=== PATIENT | male | born 1940 | race Native Hawaiian/Other Pacific Islander ===

== ENCOUNTER 2016-11-29 01:11 | Emergency (ER) | payer MEDICARE ==
[2016-11-29 01:43] VITALS: RESP 18
[2016-11-29] MEDS ORDERED: ORPHENADRINE 30 MG/ML 2 ML VIAL IM STA (02:02)
[2016-11-29] MEDS ORDERED: HYDROmorphone 2 MG/ML 1 ML SYRINGE IM STA (02:02)
--- NOTE | 2016-11-29 02:28 | ED ---
Recheck HPI - General Chief Complaint: Recheck/Abnormal Lab/Rx Stated Complaint: neck pain Time Seen by Provider: 11/29/16 01:52 Source: patient, RN notes reviewed, old records reviewed Mode of arrival: ambulatory Limitations: no limitations - History of Present Illness Initial Comments: 76-year-old male presents the ED chief complaint of right-sided jaw pain. Patient reports that he's had this pain off and on for the past year. He reports it started last November after he had his teeth cleaned. He states that he was told that he has a trigeminal nerve inflammation. States that he has been prescribed gabapentin and Perkins however it is not helping the pain. Patient states that he was doing fine for the past year however he had his teeth cleaned one week ago. It seemed to reactivate the pain again. Patient denies any difficulty opening or closing his mouth. He states that he is currently undergoing chemotherapy for prostate cancer. Denies any chest pain, shortness breath, nausea, vomiting, fevers, chills, ear pain. He states it wrapped the from the TMJ or down the mandible. Patient reports it feels like a sharp shooting pain. - Related Data Home Medications Medication Instructions Recorded Confirmed Hydrocodone/Acetaminophen [[place] 1 tab PO Q4H PRN 11/29/16 11/29/16 10-325] Previous Rx's Medication Instructions Recorded Cyclobenzaprine [Flexeril] 10 mg PO TID #15 tab 11/29/16 clonazePAM [KlonoPIN] 0.5 mg PO BID #8 tablet 11/29/16 Allergies Allergy/AdvReac Type Severity Reaction Status Date / Time No Known Allergies Allergy Verified 11/29/16 12:53 Review of Systems ROS Statement: Those systems with pertinent positive or pertinent negative responses have been documented in the HPI. ROS Other: All systems not noted in ROS Statement are negative. Past Medical History Additional Past Medical History / Comment(s): Prostate cancer History of Any Multi-Drug Resistant Organisms: None Reported Past Psychological History: No Psychological Hx Reported Smoking Status: Former smoker Past Alcohol Use History: None Reported Past Drug Use History: None Reported General Exam - General Exam Comments Initial Comments: 76-year-old male. No acute distress. Limitations: no limitations General appearance: alert, in no apparent distress Head exam: Present: atraumatic, normocephalic, normal inspection Eye exam: Present: normal appearance, PERRL, EOMI. Absent: scleral icterus, conjunctival injection, periorbital swelling ENT exam: Present: normal exam, mucous membranes moist Neck exam: Present: normal inspection. Absent: tenderness, meningismus, lymphadenopathy Respiratory exam: Present: normal lung sounds bilaterally. Absent: respiratory distress, wheezes, rales, rhonchi, stridor Cardiovascular Exam: Present: regular rate, normal rhythm, normal heart sounds. Absent: systolic murmur, diastolic murmur, rubs, gallop, clicks GI/Abdominal exam: Present: soft, normal bowel sounds. Absent: distended, tenderness, guarding, rebound, rigid Extremities exam: Present: normal inspection, full ROM, normal capillary refill. Absent: tenderness, pedal edema, joint swelling, calf tenderness Back exam: Present: normal inspection Neurological exam: Present: alert, oriented X3, CN II-XII intact Psychiatric exam: Present: normal affect, normal mood Skin exam: Present: warm, dry, intact, normal color. Absent: rash Course Vital Signs 11/29/16 11/29/16 01:39 03:36 Temperature 98.8 F 97.2 F L Pulse Rate 89 65 Respiratory 18 18 Rate Blood Pressure 179/84 143/78 O2 Sat by Pulse 95 100 Oximetry Medical Decision Making - Medical Decision Making 76 male a chief complaint of right jaw pain. He states even hold he has an inflamed trigeminal nerve. Patient reports that this pain is chronic, but has become much worse over the past week after having teeth cleaned. He states that it is only on the right side and goes from his TMJ to his mandible. He is unable to sleep due to the pain he currently takes Perkins tends and gabapentin which is not helping with the pain. Patient has no evidence of abscess, and has full range of motion of jaw. No difficulty swallowing. Patient was given pain injection. Discussed possibility of steroid, however patient is currently undergoing chemotherapy. Dischssed that patient should use at home pain medication, and I can prescribe muscle relaxer for helping to sleep. Patient agrees. He was reevaluated and feels much better. Case discussed with Dr. Damon. Disposition Clinical Impression: TMJ (temporomandibular joint disorder) Disposition: HOME SELF-CARE Condition: Good Instructions: Temporomandibular Disorder (ED) Additional Instructions: Patient advised to follow-up with primary care provider. Take medications as prescribed. Return to the emergency department if any alarming signs or symptoms occur. Prescriptions: clonazePAM [KlonoPIN] 0.5 mg PO BID #8 tablet Cyclobenzaprine [Flexeril] 10 mg PO TID #15 tab Referrals: Gabby Garcia DO [Primary Care Provider] - 1-2 days Time of Disposition: 03:08
[2016-11-29 03:38] VITALS: BP 143/78; PULSE 65; TEMP 97.2
== END 2016-11-29 03:38 | disposition home or self-care (01) ==
LOC: EC 01:11
DX: M26.601 Right temporomandibular joint disorder, unspecified (principal); Z85.46 Personal history of malignant neoplasm of prostate; Z87.891 Personal history of nicotine dependence
CPT/HCPCS: 99283; 96372 ×2; J1170; J2360

== ENCOUNTER 2016-11-29 12:47 | Emergency (ER) | payer MEDICARE ==
[2016-11-29 12:53] VITALS: RESP 18; TEMP 97
[2016-11-29] MEDS ORDERED: HYDROmorphone 1 MG/ML 1 ML SYRINGE IM STA (13:48)
[2016-11-29] MEDS ORDERED: KETOROLAC 60 MG/2 ML VIAL IM STA (13:49)
--- NOTE | 2016-11-29 13:58 | ED ---
General Adult HPI - General Chief complaint: Neck Pain/Injury Stated complaint: nerve pain-revisit Time Seen by Provider: 11/29/16 13:30 Source: patient, family, RN notes reviewed Mode of arrival: wheelchair Limitations: no limitations - History of Present Illness Initial comments: Patient is a pleasant 76-year-old male returning to the emergency Department with right-sided neck/jaw pain. Symptoms have been present for 1 year. Patient has seen multiple specialists including dentist several times and his regular doctor and his oncologist and an ENT. Patient has also seen a neurologist. Patient was told it was nerve pain. Patient has been taking gabapentin however has not worked much recently. Symptoms worsened since getting his teeth cleaned again week or so ago. Symptoms are waxing and waning. Discomfort is sharp and radiating to her discomfort starts below the angle of the right mandible and extends anterior. Patient states usually drinking or eating can make symptoms worse. Patient has had MRI and x-rays done. Patient states ice to the area does help. No teeth swelling. - Related Data Home Medications Medication Instructions Recorded Confirmed Gabapentin [Neurontin] 400 mg PO BID 11/29/16 11/29/16 Hydrocodone/Acetaminophen [[place] 1 tab PO Q4H PRN 11/29/16 11/29/16 10-325] Previous Rx's Medication Instructions Recorded Cyclobenzaprine [Flexeril] 10 mg PO TID #15 tab 11/29/16 clonazePAM [KlonoPIN] 0.5 mg PO BID #8 tablet 11/29/16 Allergies Allergy/AdvReac Type Severity Reaction Status Date / Time No Known Allergies Allergy Verified 11/29/16 13:42 Review of Systems ROS Statement: Those systems with pertinent positive or pertinent negative responses have been documented in the HPI. ROS Other: All systems not noted in ROS Statement are negative. Constitutional: Denies: fever Eyes: Denies: eye pain ENT: Denies: ear pain Respiratory: Denies: cough Cardiovascular: Denies: chest pain Endocrine: Denies: fatigue Gastrointestinal: Denies: abdominal pain Genitourinary: Denies: dysuria Musculoskeletal: Denies: back pain Skin: Denies: rash Neurological: Denies: headache Past Medical History Additional Past Medical History / Comment(s): Prostate cancer History of Any Multi-Drug Resistant Organisms: None Reported Past Psychological History: No Psychological Hx Reported Smoking Status: Former smoker Past Alcohol Use History: None Reported Past Drug Use History: None Reported General Exam Limitations: no limitations General appearance: alert, in no apparent distress Head exam: Present: atraumatic, normocephalic Eye exam: Present: normal appearance, PERRL ENT exam: Present: normal oropharynx, other (Normal oropharynx. No signs of swelling or tenderness.) Neck exam: Present: normal inspection, other (No tenderness to the jaw or anterior neck including the area of concern.). Absent: tenderness Respiratory exam: Present: normal lung sounds bilaterally Cardiovascular Exam: Present: regular rate, normal rhythm GI/Abdominal exam: Present: soft. Absent: tenderness Extremities exam: Present: normal inspection Neurological exam: Present: alert, CN II-XII intact Psychiatric exam: Present: normal affect, normal mood Skin exam: Present: normal color Course Vital Signs 11/29/16 12:50 Temperature 97 F L Pulse Rate 67 Respiratory 18 Rate Blood Pressure 164/72 O2 Sat by Pulse 98 Oximetry - Reevaluation(s) Reevaluation #1: 11/29/16 13:50 Patient offered further evaluation however refuses stating this is a chronic problem and just would like pain control and discharge. Disposition Clinical Impression: Neck pain Disposition: HOME SELF-CARE Instructions: Chronic Pain (ED) Additional Instructions: Please follow-up with your primary care physician and neurologist in the beginning of the week. Return for change or worsening of symptoms, fevers or weakness or other concerns. Please consider further evaluation with pain management for possible nerve injections. Please also follow-up with oral maxillary facial surgery. Referrals: Gabby Garcia DO [Primary Care Provider] - 1-2 days Ilia Santana DDS [STAFF PHYSICIAN] - 1-2 days Bernardo Morfin MD [STAFF PHYSICIAN] - 1-2 days Time of Disposition: 13:56
[2016-11-29 14:23] VITALS: BP 127/60; PULSE 56
== END 2016-11-29 14:23 | disposition home or self-care (01) ==
LOC: EC 12:47
DX: M54.2 Cervicalgia (principal); Z85.46 Personal history of malignant neoplasm of prostate; Z87.891 Personal history of nicotine dependence; Z79.899 Other long term (current) drug therapy
CPT/HCPCS: 99283; 96372 ×2; J1885; J1170

== ENCOUNTER 2016-11-30 07:59 | Emergency (ER) | payer MEDICARE ==
[2016-11-30] MEDS ORDERED: HYDROmorphone 1 MG/ML 1 ML SYRINGE IVP STA (08:26)
[2016-11-30] MEDS ORDERED: ONDANSETRON 4 MG/2 ML VIAL IVP STA (08:26)
[2016-11-30] MEDS ORDERED: SODIUM CHLORIDE 0.9% 1,000 ML IV ONE (08:27)
[2016-11-30] MEDS ORDERED: RX INFO: IV CONTRAST WAS GIVEN 1 EACH MISC MISCELLANE PRN (08:27)
[2016-11-30] MEDS ORDERED: SODIUM CHLORIDE 0.9% 500 ML IV ONE (08:27)
--- NOTE | 2016-11-30 08:31 | ED ---
General Adult HPI - General Chief complaint: Skin/Abscess/Foreign Body Stated complaint: Dental pain Time Seen by Provider: 11/30/16 08:09 Source: patient, RN notes reviewed Mode of arrival: ambulatory Limitations: no limitations - History of Present Illness Initial comments: This a 76-year-old male presents to emergency department for his third ER visit in 24 hours for right sided facial pain. Patient states that he believes this is an exacerbation of his ongoing issue for the last 1 year. Patient states that he was told that he had trigeminal neuralgia/TMJ issues. Patient states he has pain that radiates just below his right ear and radiates along his jawline to almost his chin. Patient states that he has seen multiple specialists including ENT, primary care physician, neurologist in which most were in [place]. Patient states that he did not have any issues in [place] but states when he came back that he started having issue approximate one week ago. Patient states that he cannot tolerate the pain is eating and drinking makes his symptoms worse today has not been eating or drinking much he states that he has a rag and water and socks on that because that finding that he can wet his mouth with. Patient states though he is able to swallow his pain pills. Patient also states that he has been stable with pain up into his last week on gabapentin 400 mg twice a day. Patient states he is scheduled see Dr. Greene this week. Patient also states that he has an oncologist and currently under chemotherapy for prostate cancer. - Related Data Home Medications Medication Instructions Recorded Confirmed Gabapentin [Neurontin] 400 mg PO BID 11/29/16 11/30/16 Hydrocodone/Acetaminophen [[place] 1 tab PO Q4H PRN 11/29/16 11/30/16 10-325] Previous Rx's Medication Instructions Recorded Cyclobenzaprine [Flexeril] 10 mg PO TID #15 tab 11/29/16 clonazePAM [KlonoPIN] 0.5 mg PO BID #8 tablet 11/29/16 carBAMazepine [carBAMazepine ER] 100 mg PO BID #14 cap 11/30/16 Allergies Allergy/AdvReac Type Severity Reaction Status Date / Time No Known Allergies Allergy Verified 11/30/16 08:29 Review of Systems ROS Statement: Those systems with pertinent positive or pertinent negative responses have been documented in the HPI. ROS Other: All systems not noted in ROS Statement are negative. Past Medical History Additional Past Medical History / Comment(s): Prostate cancer History of Any Multi-Drug Resistant Organisms: None Reported Past Psychological History: No Psychological Hx Reported Smoking Status: Former smoker Past Alcohol Use History: None Reported Past Drug Use History: None Reported General Exam Limitations: no limitations General appearance: alert, in no apparent distress Head exam: Present: atraumatic, normocephalic, normal inspection Eye exam: Present: normal appearance, PERRL, EOMI. Absent: scleral icterus, conjunctival injection, periorbital swelling ENT exam: Present: normal exam, normal oropharynx, mucous membranes moist, TM's normal bilaterally, normal external ear exam, other (No abnormal lesions, abscess swelling or erythema the mouth) Neck exam: Present: normal inspection, full ROM. Absent: tenderness (No tenderness along the area of pain), meningismus, lymphadenopathy Respiratory exam: Present: normal lung sounds bilaterally. Absent: respiratory distress, wheezes, rales, rhonchi, stridor Cardiovascular Exam: Present: regular rate, normal rhythm, normal heart sounds. Absent: systolic murmur, diastolic murmur, rubs, gallop, clicks Neurological exam: Present: alert, oriented X3, CN II-XII intact Skin exam: Present: warm, dry, intact, normal color. Absent: rash Course Vital Signs 11/30/16 11/30/16 08:01 09:11 Temperature 97.6 F Pulse Rate 74 59 L Respiratory 20 16 Rate Blood Pressure 190/80 160/68 O2 Sat by Pulse 95 90 L Oximetry Medical Decision Making - Medical Decision Making 36-year-old male presented for third visit for facial pain. This is related to his trigeminal neuralgia as she's been diagnosed in the past. Patient is currently on gabapentin but it is not helping. Patient will be started on carbamazepine now to see if this helps improve his symptoms. He has an appointment follow-up with neurologist. The case was discussed with Dr. Giron. Return parameters were discussed. Patient agrees to plan. - Lab Data Result diagrams: 11/30/16 08:49 11/30/16 08:49 Lab Results 11/30/16 11/30/16 Range/Units 08:49 08:49 WBC 7.2 (3.8-10.6) k/uL RBC 4.40 (4.30-5.90) m/uL Hgb 14.5 (13.0-17.5) gm/dL Hct 41.4 (39.0-53.0) % MCV 94.1 (80.0-100.0) fL MCH 33.0 (25.0-35.0) pg MCHC 35.1 (31.0-37.0) g/dL RDW 13.3 (11.5-15.5) % Plt Count 202 (150-450) k/uL Neutrophils % 75 % Lymphocytes % 15 % Monocytes % 6 % Eosinophils % 2 % Basophils % 0 % Neutrophils # 5.4 (1.3-7.7) k/uL Lymphocytes # 1.1 (1.0-4.8) k/uL Monocytes # 0.4 (0-1.0) k/uL Eosinophils # 0.1 (0-0.7) k/uL Basophils # 0.0 (0-0.2) k/uL Sodium 144 (137-145) mmol/L Potassium 4.1 (3.5-5.1) mmol/L Chloride 108 H (98-107) mmol/L Carbon Dioxide 24 (22-30) mmol/L Anion Gap 12 mmol/L BUN 24 H (9-20) mg/dL Creatinine 1.00 (0.66-1.25) mg/dL Est GFR (MDRD) Af Amer >60 (>60 ml/min/1.73 sqM) Est GFR (MDRD) Non-Af >60 (>60 ml/min/1.73 sqM) Glucose 122 H (74-99) mg/dL Calcium 9.5 (8.4-10.2) mg/dL Total Bilirubin 1.2 (0.2-1.3) mg/dL AST 58 (17-59) U/L ALT 66 (21-72) U/L Alkaline Phosphatase 69 (38-126) U/L C-Reactive Protein <5.0 (<10.0) mg/L Total Protein 8.1 (6.3-8.2) g/dL Albumin 4.3 (3.5-5.0) g/dL Disposition Clinical Impression: Trigeminal neuralgia of right side of face Disposition: HOME SELF-CARE Condition: Stable Instructions: Trigeminal Neuralgia (ED) Additional Instructions: Please return to the Emergency Department if symptoms worsen or any other concerns. Prescriptions: carBAMazepine [carBAMazepine ER] 100 mg PO BID #14 cap Referrals: Gabby Garcia DO [Primary Care Provider] - 1-2 days Time of Disposition: 10:32
[2016-11-30 09:02] LABS: Basophils % (A) 0 %; CH 32.3; CHCM 34.4; Eosinophils # (A) 0.1 k/uL (0-0.7); Eosinophils % (A) 2 %; HCT 41.4 % (39.0-53.0); HDW 2.68; HGB 14.5 gm/dL (13.0-17.5); Luc # (Auto) 0.19; Luc % (Auto) 3; Lymphocytes # (A) 1.1 k/uL (1.0-4.8); Lymphocytes % (A) 15 %; MCHC 35.1 g/dL (31.0-37.0); MCV 94.1 fL (80.0-100.0); Mean Platelet Volume 7.8; Monocytes # (A) 0.4 k/uL (0-1.0); Monocytes % (A) 6 %; Neutrophils # (A) 5.4 k/uL (1.3-7.7); Neutrophils % (A) 75 %; RDW 13.3 % (11.5-15.5); WBC 7.2 k/uL (3.8-10.6); WBC (Perox) 7.64
[2016-11-30 09:14] VITALS: RESP 16
[2016-11-30 09:15] LABS: ALT 66 U/L (21-72); AST 58 U/L (17-59); Alkaline Phosphatase 69 U/L (38-126); Anion Gap 12 mmol/L; Blood Urea Nitrogen 24 mg/dL (9-20); C Reactive Protein <5.0 mg/L (<10.0); Calcium 9.5 mg/dL (8.4-10.2); Carbon Dioxide 24 mmol/L (22-30); Chloride 108 mmol/L (98-107); Glucose 122 mg/dL (74-99); Non-African American GFR(MDRD) >60 (>60 ml/min/1.73 sqM); Potassium 4.1 mmol/L (3.5-5.1); Sodium 144 mmol/L (137-145); Total Bilirubin 1.2 mg/dL (0.2-1.3); Total Protein 8.1 g/dL (6.3-8.2)
--- NOTE | 2016-11-30 10:06 | CT ---
EXAMINATION TYPE: CT soft tissue neck w con DATE OF EXAM: 11/30/2016 COMPARISON: NONE HISTORY: Rt sided facial and neck pain CT DLP: 483.6 mGycm CONTRAST: Patient injected with 100 mL of Omnipaque 300. TECHNIQUE: Axial images at 3 mm thick sections. Reconstructed images in the coronal plane and sagitt al plane are reviewed. FINDINGS: Limited CT sections are obtained the lung apices. The lung apices appear clear. CT neck: The torus tubarius and fossa of Rosenmuller are normal. Electrical W[employer] Lineman spaces are normal. Para nasal sinuses and mastoid air cells are clear. Parotid glands appear normal and symmetrical. Submandibular glands, are normal. Parapharyngeal spac es are normal. No suspicious adenopathy is evident. There are scattered small lymph nodes present in cluding the submandibular regions and clavicular regions. Degenerative changes are noted within the c ervical spine. The hypopharynx appears within normal limits. Vocal cord level appear symmetrical. Thyroid as visualized is normal. Mastoid air cells are clear. No suspicious petrous ridge erosions are evident. Cerebellar pontine ang les are normal. Internal auditory canals are unremarkable. IMPRESSIONS: 1. 1. No suspicious acute changes.
[2016-11-30 10:37] LABS: Erythrocyte Sedimentation Rate 20 mm/hr (0-15)
[2016-11-30 10:42] VITALS: BP 144/73; PULSE 63; TEMP 98
== END 2016-11-30 10:42 | disposition home or self-care (01) ==
LOC: EC 07:59
DX: G50.0 Trigeminal neuralgia (principal); Z87.891 Personal history of nicotine dependence; Z79.899 Other long term (current) drug therapy; Z85.46 Personal history of malignant neoplasm of prostate
CPT/HCPCS: 36415; 80053; 85652; 85025; 86140; 70491; 99283; 96374; 96375; 96361; J2405; J1170; Q9967

== ENCOUNTER 2016-12-13 09:51 | Emergency (ER) | payer MEDICARE ==
--- NOTE | 2016-12-13 10:35 | ED ---
General Adult HPI - General Chief complaint: ENT Stated complaint: neck pain Time Seen by Provider: 12/13/16 10:17 Source: patient, family, RN notes reviewed Mode of arrival: ambulatory Limitations: no limitations - History of Present Illness Initial comments: Patient is a pleasant 76-year-old male presenting to the emergency department with right neck pain. Patient has been having symptoms for over a year. Patient is scheduled for MRI on Wednesday. Patient has seen his doctor and neurologist and dentist and others for this. Patient has had CT scans. Patient thought he had previously had an MRI however is no longer clear on this. Patient had severe pain around 8:00 this morning. Pain usually gets worse with eating and drinking. Patient has no discomfort at this time. Patient has not followed up with physicians as previously recommended an ER visit. Previous ER visits reviewed. Patient is currently undergoing radiation therapy for prostate cancer. Patient has also discussed symptoms with his oncologist. - Related Data Home Medications Medication Instructions Recorded Confirmed Gabapentin [Neurontin] 400 mg PO BID 11/29/16 11/30/16 Hydrocodone/Acetaminophen [[place] 1 tab PO Q4H PRN 11/29/16 11/30/16 10-325] Previous Rx's Medication Instructions Recorded Cyclobenzaprine [Flexeril] 10 mg PO TID #15 tab 11/29/16 clonazePAM [KlonoPIN] 0.5 mg PO BID #8 tablet 11/29/16 carBAMazepine [carBAMazepine ER] 100 mg PO BID #14 cap 11/30/16 Allergies Allergy/AdvReac Type Severity Reaction Status Date / Time No Known Allergies Allergy Verified 12/13/16 10:15 Review of Systems ROS Statement: Those systems with pertinent positive or pertinent negative responses have been documented in the HPI. ROS Other: All systems not noted in ROS Statement are negative. Constitutional: Denies: fever Eyes: Denies: eye pain ENT: Denies: ear pain, throat pain, dental pain, hearing loss, epistaxis Respiratory: Denies: cough Cardiovascular: Denies: chest pain Endocrine: Denies: fatigue Gastrointestinal: Denies: abdominal pain Genitourinary: Denies: dysuria Musculoskeletal: Denies: back pain Skin: Denies: rash Neurological: Denies: weakness Psychiatric: Reports: anxiety Past Medical History Additional Past Medical History / Comment(s): Prostate cancer, trigenminal neuralgia History of Any Multi-Drug Resistant Organisms: None Reported Past Surgical History: No Surgical Hx Reported Past Psychological History: No Psychological Hx Reported Smoking Status: Former smoker Past Alcohol Use History: None Reported Past Drug Use History: None Reported General Exam Limitations: no limitations General appearance: alert, in no apparent distress Head exam: Present: atraumatic Eye exam: Present: normal appearance, PERRL ENT exam: Present: normal exam, normal oropharynx, TM's normal bilaterally, other (No tenderness. No swelling.) Neck exam: Present: normal inspection, full ROM. Absent: tenderness, meningismus, lymphadenopathy Respiratory exam: Present: normal lung sounds bilaterally Cardiovascular Exam: Present: regular rate, normal rhythm GI/Abdominal exam: Present: soft. Absent: tenderness Neurological exam: Present: alert, oriented X3, CN II-XII intact. Absent: motor sensory deficit Psychiatric exam: Present: normal affect, normal mood Skin exam: Present: normal color Course Vital Signs 12/13/16 10:08 Temperature 97.5 F L Pulse Rate 68 Respiratory 18 Rate Blood Pressure 120/69 O2 Sat by Pulse 97 Oximetry Disposition Clinical Impression: Neck pain Disposition: HOME SELF-CARE Condition: Stable Instructions: Chronic Pain (ED) Additional Instructions: Please follow-up with MRI on Wednesday as scheduled. Please follow-up with your doctor following this. Please also follow-up with oral maxillary facial surgeon as well as pain management. Return for swelling, weakness, worsening or changing symptoms or other concerns. Referrals: Gabby Garcia DO [Primary Care Provider] - 1-2 days Bernardo Morfin MD [STAFF PHYSICIAN] - 1-2 days Ilia Santana DDS [STAFF PHYSICIAN] - 1-2 days Time of Disposition: 10:34
[2016-12-13] MEDS ORDERED: KETOROLAC 60 MG/2 ML VIAL IM STA (10:46)
[2016-12-13] MEDS ORDERED: HYDROmorphone 1 MG/ML 1 ML SYRINGE IM STA (10:47)
[2016-12-13 11:03] VITALS: BP 123/75; PULSE 69; RESP 16; TEMP 97.8
== END 2016-12-13 11:14 | disposition home or self-care (01) ==
LOC: EC 09:51
DX: M54.2 Cervicalgia (principal); C61 Malignant neoplasm of prostate; Z87.891 Personal history of nicotine dependence; Z79.899 Other long term (current) drug therapy
CPT/HCPCS: 99283; 96372 ×2; J1885; J1170

== ENCOUNTER → 2016-12-16 | Outpatient (CLI) | payer MEDICARE ==
--- NOTE | 2016-12-16 17:36 | MR ---
EXAMINATION TYPE: MR brain wo/w con DATE OF EXAM: 12/16/2016 COMPARISON: NONE HISTORY: Disorder of rt glossopharyngeal nerve CONTRAST: Performed utilizing 18 mL intravenous MultiHance gadolinium contrast. TECHNIQUE: Multiplanar, multiecho imaging on a 3.0 Arlin magnet is performed through the brain. Stud y is performed within 24 hours of arrival to the hospital. The craniovertebral junction is normal. The pituitary is normal. Diffusion-weighted imaging is performed. No abnormal hyperintensity is present to suggest an acute i ntracranial infarct or acute ischemic change. There are scattered punctate areas of hyperintensity on T2 and Inversion Recovery weighted sequences which are non-specific but can be related to microvascular ischemic changes. Ventricles and sulci are appropriate for the patient age. Skull base appears unremarkable. Jugulodigastric region appears unremarkable. No cerebellar pontine a ngle masses are evident. IMPRESSIONS: 1. Unremarkable noncontrast and postcontrast MRI brain
== END | disposition home or self-care (01) ==
LOC: RADMRIMAIN 15:33
PROVIDERS: ATTEND Family Medicine
DX: G52.1 Disorders of glossopharyngeal nerve (principal)
CPT/HCPCS: 70553; A9577

== ENCOUNTER → 2017-02-17 | Outpatient (CLI) | payer MEDICARE | END | disposition home or self-care (01) | LOC: LABWHC1 12:00 | PROVIDERS: ATTEND Radiology Radiation Oncology | DX: C61 Malignant neoplasm of prostate (principal) | CPT/HCPCS: 36415; 84153 ==

== ENCOUNTER → 2017-11-08 | Outpatient (CLI) | payer MEDICARE | END | disposition home or self-care (01) | LOC: LABWHC1 13:44 | PROVIDERS: ATTEND Radiology Radiation Oncology | DX: C61 Malignant neoplasm of prostate (principal) | CPT/HCPCS: 36415; 84153 ==

== ENCOUNTER → 2017-12-15 | Outpatient (CLI) | payer MEDICARE ==
[2017-12-15 13:15] LABS: Basophils % (A) 0 %; Eosinophils # (A) 0.2 k/uL (0-0.7); Eosinophils % (A) 3 %; HGB 13.5 gm/dL (13.0-17.5); Lymphocytes # (A) 1.3 k/uL (1.0-4.8); Lymphocytes % (A) 22 %; MCH 32.1 pg (25.0-35.0); MCHC 32.9 g/dL (31.0-37.0); MCV 97.5 fL (80.0-100.0); Mean Platelet Volume 7.9; Monocytes # (A) 0.5 k/uL (0-1.0); Monocytes % (A) 9 %; Neutrophils # (A) 3.7 k/uL (1.3-7.7); Neutrophils % (A) 64 %; Platelet Count 226 k/uL (150-450); RBC 4.21 m/uL (4.30-5.90); RDW 13.3 % (11.5-15.5); WBC 5.8 k/uL (3.8-10.6)
[2017-12-15 13:23] LABS: ALT 52 U/L (21-72); AST 37 U/L (17-59); Albumin 4.1 g/dL (3.5-5.0); Alkaline Phosphatase 73 U/L (38-126); Anion Gap 6 mmol/L; Blood Urea Nitrogen 13 mg/dL (9-20); Carbon Dioxide 28 mmol/L (22-30); Chloride 106 mmol/L (98-107); Glucose 95 mg/dL (74-99); Potassium 4.4 mmol/L (3.5-5.1); Sodium 140 mmol/L (137-145); Total Bilirubin 0.3 mg/dL (0.2-1.3); Total Protein 7.5 g/dL (6.3-8.2)
== END | disposition home or self-care (01) ==
LOC: LABWHC1 12:41
PROVIDERS: ATTEND Psychiatry & Neurology Neurology
DX: Z51.81 Encounter for therapeutic drug level monitoring (principal); Z79.899 Other long term (current) drug therapy
CPT/HCPCS: 36415; 80053; 85025

== ENCOUNTER → 2018-02-01 | Outpatient (CLI) | payer MEDICARE ==
[2018-02-01 11:35] LABS: Basophils % (A) 0 %; Eosinophils # (A) 0.2 k/uL (0-0.7); Eosinophils % (A) 3 %; HCT 38.7 % (39.0-53.0); HGB 12.2 gm/dL (13.0-17.5); Lymphocytes # (A) 1.3 k/uL (1.0-4.8); Lymphocytes % (A) 19 %; MCHC 31.5 g/dL (31.0-37.0); MCV 98.6 fL (80.0-100.0); Mean Platelet Volume 7.6; Monocytes # (A) 0.4 k/uL (0-1.0); Monocytes % (A) 6 %; Neutrophils # (A) 4.6 k/uL (1.3-7.7); Neutrophils % (A) 70 %; Platelet Count 202 k/uL (150-450); RBC 3.93 m/uL (4.30-5.90); WBC 6.5 k/uL (3.8-10.6)
[2018-02-01 11:50] LABS: ALT 30 U/L (21-72); AST 24 U/L (17-59); Albumin 3.9 g/dL (3.5-5.0); Alkaline Phosphatase 72 U/L (38-126); Anion Gap 8 mmol/L; Blood Urea Nitrogen 12 mg/dL (9-20); Calcium 8.9 mg/dL (8.4-10.2); Carbon Dioxide 28 mmol/L (22-30); Chloride 105 mmol/L (98-107); Glucose 103 mg/dL (74-99); Potassium 4.6 mmol/L (3.5-5.1); Sodium 141 mmol/L (137-145); Total Bilirubin 0.4 mg/dL (0.2-1.3); Total Protein 7.7 g/dL (6.3-8.2)
== END | disposition home or self-care (01) ==
LOC: LABWHC1 10:57
PROVIDERS: ATTEND Urology
DX: C61 Malignant neoplasm of prostate (principal); Z79.899 Other long term (current) drug therapy
CPT/HCPCS: 36415; 80053; 84153; 84403; 85025

== ENCOUNTER → 2018-02-11 | Outpatient (CLI) | payer MEDICARE | END | disposition home or self-care (01) | LOC: LABWHC1 13:56 | PROVIDERS: ATTEND Radiology Radiation Oncology | DX: C61 Malignant neoplasm of prostate (principal) | CPT/HCPCS: 36415; 84153 ==

== ENCOUNTER → 2018-11-21 | Outpatient (CLI) | payer MEDICARE | END | disposition home or self-care (01) | LOC: LABWHC1 13:35 | PROVIDERS: ATTEND Radiology Radiation Oncology | DX: C61 Malignant neoplasm of prostate (principal); Z87.891 Personal history of nicotine dependence | CPT/HCPCS: 36415; 84153 ==

== ENCOUNTER → 2019-11-20 | Outpatient (CLI) | payer MEDICARE | END | disposition home or self-care (01) | LOC: LABWHC1 13:49 | PROVIDERS: ATTEND Radiology Radiation Oncology | DX: C61 Malignant neoplasm of prostate (principal); Z87.891 Personal history of nicotine dependence | CPT/HCPCS: 36415; 84153 ==

== ENCOUNTER → 2020-11-20 | Outpatient (CLI) | payer MEDICARE | END | disposition home or self-care (01) | LOC: LABWHC1 14:13 | PROVIDERS: ATTEND Radiology Radiation Oncology | DX: Z08 Encounter for follow-up examination after completed treatment for malignant neoplasm (principal); C61 Malignant neoplasm of prostate; Z85.46 Personal history of malignant neoplasm of prostate; Z87.891 Personal history of nicotine dependence | CPT/HCPCS: 36415; 84153 ==

== ENCOUNTER 2021-01-31 08:22 | Inpatient (IN) | payer MEDICARE ==
[2021-01-31 09:03] LABS: Basophils # (A) 0.1 k/uL (0-0.2); Basophils % (A) 0 %; Eosinophils # (A) 0.1 k/uL (0-0.7); Eosinophils % (A) 1 %; HCT 40.7 % (39.0-53.0); Lymphocytes # (A) 1.2 k/uL (1.0-4.8); Lymphocytes % (A) 8 %; MCH 33.1 pg (25.0-35.0); MCHC 34.4 g/dL (31.0-37.0); MCV 96.4 fL (80.0-100.0); Mean Platelet Volume 7.7; Monocytes # (A) 0.6 k/uL (0-1.0); Monocytes % (A) 4 %; Neutrophils # (A) 13.1 k/uL (1.3-7.7); Neutrophils % (A) 85 %; Platelet Count 397 k/uL (150-450); RBC 4.22 m/uL (4.30-5.90); RDW 13.5 % (11.5-15.5); WBC 15.4 k/uL (3.8-10.6)
--- NOTE | 2021-01-31 09:04 | ED ---
General Adult HPI - General Chief complaint: Shortness of Breath Stated complaint: SOB Time Seen by Provider: 01/31/21 08:30 Source: patient, RN notes reviewed, old records reviewed Mode of arrival: EMS Limitations: no limitations - History of Present Illness Initial comments: This is a 81-year-old male who presents emergency Department complaining of d ifficulty breathing. Patient states it's been ongoing for about 6 days. Patient states he had coded vaccine months ago. Patient states he had one day of fever but he didn't take his temperature. She denies any chest pain or palpitations. Patient denies abdominal pain patient denies nausea vomiting diarrhea. Patient is any loss of smell or taste. Patient denies headache patient denies lightheadedness or dizziness. EMS on room air he was sat in the 70s. On 2 L of Oxygen which she does not have at home he was 88. - Related Data Home Medications Medication Instructions Recorded Confirmed Gabapentin [Neurontin] 300 mg PO DAILY 01/31/21 01/31/21 Multivitamins, Thera [Multivitamin 1 tab PO DAILY 01/31/21 01/31/21 (formulary)] carBAMazepine [carBAMazepine ER] 300 mg PO DAILY 01/31/21 01/31/21 Allergies Allergy/AdvReac Type Severity Reaction Status Date / Time No Known Allergies Allergy Verified 01/31/21 09:37 Review of Systems ROS Statement: Those systems with pertinent positive or pertinent negative responses have been documented in the HPI. ROS Other: All systems not noted in ROS Statement are negative. Past Medical History Additional Past Medical History / Comment(s): Prostate cancer, trigenminal neuralgia History of Any Multi-Drug Resistant Organisms: None Reported Past Surgical History: No Surgical Hx Reported Past Psychological History: No Psychological Hx Reported Smoking Status: Former smoker Past Alcohol Use History: None Reported Past Drug Use History: None Reported General Exam - General Exam Comments Initial Comments: GENERAL: Patient is well-developed and well-nourished. Patient is nontoxic and well- hydrated and is in mild distress. ENT: Neck is soft and supple. No significant lymphadenopathy is noted. Oropharynx is clear. Moist mucous membranes. Neck has full range of motion without eliciting any pain. EYES: The sclera were anicteric and conjunctiva were pink and moist. Extraocular movements were intact and pupils were equal round and reactive to light. Eyelids were unremarkable. PULMONARY: Patient has crackles bilateral bases CARDIOVASCULAR: There is a regular rate and rhythm without any murmurs gallops or rubs. ABDOMEN: Soft and nontender with normal bowel sounds. SKIN: Skin is clear with no lesions or rashes and otherwise unremarkable. NEUROLOGIC: Patient is alert and oriented x3. Cranial nerves II through XII are grossly intact. Motor and sensory are also intact. Normal speech, volume and content. Symmetrical smile. MUSCULOSKELETAL: Normal extremities with adequate strength and full range of motion. No lower extremity swelling or edema. No calf tenderness. LYMPHATICS: No significant lymphadenopathy is noted PSYCHIATRIC: Normal psychiatric evaluation. Limitations: no limitations Course Vital Signs 01/31/21 01/31/21 08:30 08:37 Temperature 99.8 F H Pulse Rate 101 H Respiratory 22 21 Rate Blood Pressure 143/79 O2 Sat by Pulse 72 L 88 L Oximetry Medical Decision Making - Medical Decision Making EKG shows sinus tachycardia at 103 bpm ID interval 266 QRS is 96 Q-T intervals 370 QTC is 44. Patient's EKG shows no ST segment elevation or depression. X-ray shows bilateral pneumonia. Patient is also positive for COVID. I started the patient on antibiotics as well as steroids. I spoke with Dr. David he agreed to admit the patient admitted the patient. I spoke with Dr. Suárez he wanted steroids continued and he agreed to be on consult. - Lab Data Result diagrams: 01/31/21 08:41 01/31/21 08:41 Lab Results 01/31/21 01/31/21 01/31/21 Range/Units 08:41 08:41 08:41 WBC 15.4 H (3.8-10.6) k/uL RBC 4.22 L (4.30-5.90) m/uL Hgb 14.0 (13.0-17.5) gm/dL Hct 40.7 (39.0-53.0) % MCV 96.4 (80.0-100.0) fL MCH 33.1 (25.0-35.0) pg MCHC 34.4 (31.0-37.0) g/dL RDW 13.5 (11.5-15.5) % Plt Count 397 (150-450) k/uL MPV 7.7 Neutrophils % 85 % Lymphocytes % 8 % Monocytes % 4 % Eosinophils % 1 % Basophils % 0 % Neutrophils # 13.1 H (1.3-7.7) k/uL Lymphocytes # 1.2 (1.0-4.8) k/uL Monocytes # 0.6 (0-1.0) k/uL Eosinophils # 0.1 (0-0.7) k/uL Basophils # 0.1 (0-0.2) k/uL PT 11.1 (9.0-12.0) sec INR 1.1 (<1.2) APTT 23.6 (22.0-30.0) sec Sodium 132 L (137-145) mmol/L Potassium 2.8 L (3.5-5.1) mmol/L Chloride 97 L (98-107) mmol/L Carbon Dioxide 26 (22-30) mmol/L Anion Gap 9 mmol/L BUN 12 (9-20) mg/dL Creatinine 0.65 L (0.66-1.25) mg/dL Est GFR (CKD-EPI)AfAm >90 (>60 ml/min/1.73 sqM) Est GFR (CKD-EPI)NonAf >90 (>60 ml/min/1.73 sqM) Glucose 163 H (74-99) mg/dL Plasma Lactic Acid Ranjeet (0.7-2.0) mmol/L Calcium 7.5 L (8.4-10.2) mg/dL Magnesium 2.3 (1.6-2.3) mg/dL Total Bilirubin 0.7 (0.2-1.3) mg/dL AST 83 H (17-59) U/L ALT 120 H (4-49) U/L Alkaline Phosphatase 101 (38-126) U/L Troponin I (0.000-0.034) ng/mL NT-Pro-B Natriuret Pep pg/mL Total Protein 6.7 (6.3-8.2) g/dL Albumin 3.1 L (3.5-5.0) g/dL Coronavirus (PCR) (Not Detectd) 01/31/21 01/31/21 01/31/21 Range/Units 08:41 08:41 08:41 WBC (3.8-10.6) k/uL RBC (4.30-5.90) m/uL Hgb (13.0-17.5) gm/dL Hct (39.0-53.0) % MCV (80.0-100.0) fL MCH (25.0-35.0) pg MCHC (31.0-37.0) g/dL RDW (11.5-15.5) % Plt Count (150-450) k/uL MPV Neutrophils % % Lymphocytes % % Monocytes % % Eosinophils % % Basophils % % Neutrophils # (1.3-7.7) k/uL Lymphocytes # (1.0-4.8) k/uL Monocytes # (0-1.0) k/uL Eosinophils # (0-0.7) k/uL Basophils # (0-0.2) k/uL PT (9.0-12.0) sec INR (<1.2) APTT (22.0-30.0) sec Sodium (137-145) mmol/L Potassium (3.5-5.1) mmol/L Chloride (98-107) mmol/L Carbon Dioxide (22-30) mmol/L Anion Gap mmol/L BUN (9-20) mg/dL Creatinine (0.66-1.25) mg/dL Est GFR (CKD-EPI)AfAm (>60 ml/min/1.73 sqM) Est GFR (CKD-EPI)NonAf (>60 ml/min/1.73 sqM) Glucose (74-99) mg/dL Plasma Lactic Acid Ranjeet 1.8 (0.7-2.0) mmol/L Calcium (8.4-10.2) mg/dL Magnesium (1.6-2.3) mg/dL Total Bilirubin (0.2-1.3) mg/dL AST (17-59) U/L ALT (4-49) U/L Alkaline Phosphatase (38-126) U/L Troponin I <0.012 (0.000-0.034) ng/mL NT-Pro-B Natriuret Pep 267 pg/mL Total Protein (6.3-8.2) g/dL Albumin (3.5-5.0) g/dL Coronavirus (PCR) (Not Detectd) 01/31/21 Range/Units 08:41 WBC (3.8-10.6) k/uL RBC (4.30-5.90) m/uL Hgb (13.0-17.5) gm/dL Hct (39.0-53.0) % MCV (80.0-100.0) fL MCH (25.0-35.0) pg MCHC (31.0-37.0) g/dL RDW (11.5-15.5) % Plt Count (150-450) k/uL MPV Neutrophils % % Lymphocytes % % Monocytes % % Eosinophils % % Basophils % % Neutrophils # (1.3-7.7) k/uL Lymphocytes # (1.0-4.8) k/uL Monocytes # (0-1.0) k/uL Eosinophils # (0-0.7) k/uL Basophils # (0-0.2) k/uL PT (9.0-12.0) sec INR (<1.2) APTT (22.0-30.0) sec Sodium (137-145) mmol/L Potassium (3.5-5.1) mmol/L Chloride (98-107) mmol/L Carbon Dioxide (22-30) mmol/L Anion Gap mmol/L BUN (9-20) mg/dL Creatinine (0.66-1.25) mg/dL Est GFR (CKD-EPI)AfAm (>60 ml/min/1.73 sqM) Est GFR (CKD-EPI)NonAf (>60 ml/min/1.73 sqM) Glucose (74-99) mg/dL Plasma Lactic Acid Ranjeet (0.7-2.0) mmol/L Calcium (8.4-10.2) mg/dL Magnesium (1.6-2.3) mg/dL Total Bilirubin (0.2-1.3) mg/dL AST (17-59) U/L ALT (4-49) U/L Alkaline Phosphatase (38-126) U/L Troponin I (0.000-0.034) ng/mL NT-Pro-B Natriuret Pep pg/mL Total Protein (6.3-8.2) g/dL Albumin (3.5-5.0) g/dL Coronavirus (PCR) Detected A (Not Detectd) Disposition Clinical Impression: Pneumonia due to COVID-19 virus, Bacterial pneumonia Disposition: ADMITTED IP TO THIS HOSP Referrals: Gabby Garcia DO [Primary Care Provider] - 1-2 days Time of Disposition: 11:20
--- NOTE | 2021-01-31 09:12 | XR ---
EXAMINATION TYPE: XR chest 1V portable DATE OF EXAM: 01/31/2021 HISTORY: Shortness of breath. COMPARISON: None TECHNIQUE: Single view of the chest is submitted. FINDINGS: Demonstrated are scattered senescent parenchymal change. Perihilar airspace consolidation compatible with pneumonia. The heart is stable. Hilar and mediastinal structures are within normal limits. Degenerative changes are seen of the dorsal spine. IMPRESSION: 1. Perihilar airspace consolidation compatible with pneumonia.
[2021-01-31 09:17] LABS: INR 1.1 (<1.2); Partial Thromboplastin Time 23.6 sec (22.0-30.0); Prothrombin Time 11.1 sec (9.0-12.0)
[2021-01-31 09:18] LABS: ALT 120 U/L (4-49); AST 83 U/L (17-59); African American GFR (CKD) >90 (>60 ml/min/1.73 sqM); Albumin 3.1 g/dL (3.5-5.0); Alkaline Phosphatase 101 U/L (38-126); Anion Gap 9 mmol/L; Blood Urea Nitrogen 12 mg/dL (9-20); Calcium 7.5 mg/dL (8.4-10.2); Carbon Dioxide 26 mmol/L (22-30); Chloride 97 mmol/L (98-107); Glucose 163 mg/dL (74-99); Magnesium 2.3 mg/dL (1.6-2.3); Non-African American GFR(CKD) >90 (>60 ml/min/1.73 sqM); Potassium 2.8 mmol/L (3.5-5.1); Sodium 132 mmol/L (137-145); Total Bilirubin 0.7 mg/dL (0.2-1.3); Total Protein 6.7 g/dL (6.3-8.2)
[2021-01-31] MEDS ORDERED: DEXAMETHASONE SOD PHOSPHATE 10 MG/ML 1 ML VIAL IV STA (09:45)
[2021-01-31] MEDS ORDERED: PNEUMONIA PROTOCOL UTILIZED 1 EACH MISC PO PRN (11:21)
[2021-01-31] MEDS ORDERED: REMDESIVIR 200 MG in SODIUM CHLORIDE 0.9% 250 ML IVPB ONE ×2 (14:00→15:00)
--- NOTE | 2021-01-31 14:15 | P.CNPUL ---
History of Present Illness Consult date: 01/31/21 Requesting physician: Ilia Reese Reason for consult: dyspnea, cough Chief complaint: Shortness of breath History of present illness: This is a 81-year-old male patient of Dr. Garcia, with past medical history prostate cancer, trigeminal neuralgia, and former smoker, who came into the emergency department on 01/31/2021, for evaluation of difficulty breathing. He stated his symptom onset was about 6 days ago. Patient has completed his COVID-19 vaccination months ago. He reports 1 day of fever. Denies any chest pain or palpitations, headaches, loss of smell or taste, no nausea vomiting or diarrhea. In the emergency department his pulse ox on room air was 70%. 's placed on supplemental oxygen initially at 2 L. His pulse ox at home was 80% on room air. Chest x-ray shows perihilar airspace consolidation compatible with pneumonia. Currently his pulse ox is 90% on 6 L, his temp in the emergency department was 99.8F. Lab work shows a white blood cell, 15.4, hemoglobin is 14, lymphocyte count is 1.2, neutrophils are at 13.1, INR is 1.1, sodium is 132, potassium is 2.8, chloride is 97, BUN is 12, creatinine is 0.65 plasma lactic acid is 1.8, AST was 83, ALT was 120, troponin was less than 0.012, proBNP was 267. COVID-19 PCR was positive. Pro-calcitonin level was sent, and patient was also started on a combination of azithromycin and Rocephin for possibility of concurrent bacterial pneumonia. He was started on prophylactic anticoagulation and form of Lovenox. Patient is still within the window for Remdesivir treatment and he will be started on the today. Review of Systems All systems: negative Constitutional: Denies chills, Denies fever Eyes: denies blurred vision, denies pain Ears, nose, mouth and throat: Denies headache, Denies sore throat Cardiovascular: Denies chest pain, Denies shortness of breath Respiratory: Reports cough, Reports dyspnea Gastrointestinal: Denies abdominal pain, Denies diarrhea, Denies nausea, Denies vomiting Musculoskeletal: Denies myalgias Integumentary: Denies pruritus, Denies rash Neurological: Denies numbness, Denies weakness Psychiatric: Denies anxiety, Denies depression Endocrine: Denies fatigue, Denies weight change Past Medical History Additional Past Medical History / Comment(s): Prostate cancer, trigenminal neuralgia History of Any Multi-Drug Resistant Organisms: None Reported Past Surgical History: No Surgical Hx Reported Past Psychological History: No Psychological Hx Reported Smoking Status: Former smoker Past Alcohol Use History: None Reported Past Drug Use History: None Reported Medications and Allergies Home Medications Medication Instructions Recorded Confirmed Type Gabapentin [Neurontin] 300 mg PO DAILY 01/31/21 01/31/21 History Multivitamins, Thera [Multivitamin 1 tab PO DAILY 01/31/21 01/31/21 History (formulary)] carBAMazepine [carBAMazepine ER] 300 mg PO DAILY 01/31/21 01/31/21 History Allergies Allergy/AdvReac Type Severity Reaction Status Date / Time No Known Allergies Allergy Verified 01/31/21 09:37 Physical Exam Vitals: Vital Signs Temp Pulse Resp BP Pulse Ox 01/31/21 11:30 86 32 H 121/73 90 L 01/31/21 11:00 85 32 H 124/71 91 L 01/31/21 10:30 90 34 H 139/72 91 L 01/31/21 10:00 100 30 H 123/74 87 L 01/31/21 09:30 89 29 H 143/78 89 L 01/31/21 09:00 98 32 H 143/79 89 L 01/31/21 08:37 21 88 L 01/31/21 08:30 99.8 F H 101 H 22 143/79 90 L Intake and Output 01/30/21 01/31/21 01/31/21 22:59 06:59 14:59 Other: Weight 88.904 kg GENERAL EXAM: Alert, very pleasant, 81-year-old male, on 6 L of oxygen with pulse ox of 90% comfortable in no apparent distress. HEAD: Normocephalic/atraumatic. EYES: Normal reaction of pupils, equal size. Conjunctiva pink, sclera white. NOSE: Clear with pink turbinates. THROAT: No erythema or exudates. NECK: No masses, no JVD, no thyroid enlargement, no adenopathy. CHEST: No chest wall deformity. Symmetrical expansion. LUNGS: Equal air entry with diffuse crackles CVS: Regular rate and rhythm, normal S1 and S2, no gallops, no murmurs, no rubs ABDOMEN: Soft, nontender. No hepatosplenomegaly, normal bowel sounds, no guarding or rigidity. EXTREMITIES: No clubbing, no edema, no cyanosis, 2+ pulses and upper and lower extremities. MUSCULOSKELETAL: Muscle strength and tone normal. SPINE: No scoliosis or deformity SKIN: No rashes CENTRAL NERVOUS SYSTEM: Alert and oriented -3. No focal deficits, tone is normal in all 4 extremities. PSYCHIATRIC: Alert and oriented -3. Appropriate affect. Intact judgment and insight. Results - Laboratory Findings CBC and BMP: 01/31/21 08:41 01/31/21 08:41 PT/INR, D-dimer PT 11.1 sec (9.0-12.0) 01/31/21 08:41 INR 1.1 (<1.2) 01/31/21 08:41 Abnormal lab findings: Abnormal Labs 01/31/21 01/31/21 01/31/21 08:41 08:41 08:41 WBC 15.4 H RBC 4.22 L Neutrophils # 13.1 H Sodium 132 L Potassium 2.8 L Chloride 97 L Creatinine 0.65 L Glucose 163 H Calcium 7.5 L AST 83 H ALT 120 H Albumin 3.1 L Coronavirus (PCR) Detected A - Diagnostic Findings Chest x-ray: report reviewed, image reviewed Additional studies: EKG Assessment and Plan Plan: Assessment: #1. Acute hypoxic respiratory failure related to acute COVID-19 related pneumonia. Patient is fully vaccinated for COVID-19. Onset of symptoms as 5-6 days prior to presentation. Patient will be started on Remdesivir today on 01/31/2021 #2. Rule out possibility of bacterial pneumonia, pro-calcitonin level is pending. Legionella urine antigen will be sent #3. History of smoking #4. History of prostate cancer #5. History of trigeminal neuralgia Plan: We'll start the patient on Remdesivir Continue Decadron Continue azithromycin and Rocephin, Pro-calcitonin level is pending, Continue prophylactic Lovenox Send a d-dimer, LDH, CRP May need CTA chest if d-dimer is elevated Continue monitoring for worsening dyspnea or hypoxia I performed a history & physical examination of the patient and discussed their management with my nurse practitioner, Carol Almazan. I reviewed the nurse practitioner's note and agree with the documented findings and plan of care. Lung sounds are positive for clear breath sounds throughout the lung quiroz. The findings and the impression was discussed with the patient. I attest to the documentation by the nurse practitioner. Time with Patient: Greater than 30
[2021-01-31] MEDS ORDERED: POTASSIUM CHLORIDE ER 20 MEQ TAB.ER PO STA (15:22)
[2021-01-31] MEDS ORDERED: SODIUM CHLORIDE 0.9% 1,000 ML IV SCH (15:30)
[2021-01-31 16:13] LABS: C Reactive Protein 19.3 mg/dL (<1.0)
--- NOTE | 2021-01-31 16:25 | P.HPIM ---
History of Present Illness H&P Date: 01/31/21 Chief Complaint: Shortness of breath Patient is a 19-year-old male with a known history of prostate cancer, trigeminal neuralgia, previous history of smoking presents ER with the complaints of difficulty in breathing. Patient says that he has been having symptoms for the past 6 days. Also complaining of fever. Does have cough without sputum production. No complaints of nausea and vomiting or abdominal pain or diarrhea. Denied any loss of taste are. On admission T-max 99.8 and also 101 and respirations 22 pulse ox and was documented. Chest x-ray showed perihilar airspace consolidation compatible with pneumonia. EKG showed sinus tachycardia Laboratory data showed dullness he 15.4 hemoglobin 14.0 and platelets 397, d- dimer 8.93 Sodium 132 potassium 2.8) 97 BUN 12 and creatinine 0.65 magnesium 2.3 AST 83 and alk phos 101 ALT 120, LDH 966, CRP 19.3 COVID-19 PCR detected. Review of Systems Constitutional: Patient does have subjective fevers and no chills. Generalized weakness and fatigue and malaise.. Abdomen: Patient denied nausea vomiting and diarrhea and abdominal pain. Cardiovascular: Patient denies any chest pain or short of breath no palpitations. Respiratory: Does have cough without sputum production. Positive for shortness of breath Neurologic: Patient denied any numbness or tingling headache. Musculoskeletal: Patient denies any complaints of joint swelling or deformity. Skin: Negative Psychiatric: Negative Endocrine: No heat or cold intolerance. No recent weight gain. Genitourinary: No dysuria or hematuria. All other 14 point ROS negative except the above Past Medical History Additional Past Medical History / Comment(s): Prostate cancer, trigenminal neuralgia History of Any Multi-Drug Resistant Organisms: None Reported Past Surgical History: No Surgical Hx Reported Past Psychological History: No Psychological Hx Reported Smoking Status: Former smoker Past Alcohol Use History: None Reported Past Drug Use History: None Reported Medications and Allergies Home Medications Medication Instructions Recorded Confirmed Type Gabapentin [Neurontin] 300 mg PO DAILY 01/31/21 01/31/21 History Multivitamins, Thera [Multivitamin 1 tab PO DAILY 01/31/21 01/31/21 History (formulary)] carBAMazepine [carBAMazepine ER] 300 mg PO DAILY 01/31/21 01/31/21 History Allergies Allergy/AdvReac Type Severity Reaction Status Date / Time No Known Allergies Allergy Verified 01/31/21 09:37 Physical Exam Vitals: Vital Signs Temp Pulse Resp BP Pulse Ox 01/31/21 11:30 86 32 H 121/73 90 L 01/31/21 11:00 85 32 H 124/71 91 L 01/31/21 10:30 90 34 H 139/72 91 L 01/31/21 10:00 100 30 H 123/74 87 L 01/31/21 09:30 89 29 H 143/78 89 L 01/31/21 09:00 98 32 H 143/79 89 L 01/31/21 08:37 21 88 L 01/31/21 08:30 99.8 F H 101 H 22 143/79 90 L Intake and Output 01/31/21 01/31/21 01/31/21 06:59 14:59 22:59 Other: Weight 88.904 kg PHYSICAL EXAMINATION: Patient is lying in the bed comfortably, no acute distress, awake alert and oriented.. HEENT: Normocephalic. Neck is supple. Pupils reactive. Nostrils clear. Oral cavity is moist. Neck reveals no JVD, carotid bruits, or thyromegaly. CHEST EXAMINATION: Trachea is central. Symmetrical expansion. The lateral course breath sounds and crackles. No wheezing or rhonchi.. CARDIAC: Normal S1, S2 with no gallops. No murmurs ABDOMEN: Soft. Bowel sounds normal. No organomegaly. No abdominal bruits. Extremities: reveal no edema. No clubbing or cyanosis Neurologically awake, alert, oriented x3 with well-coordinated movements. No focal deficits noted Skin: No rash or skin lesions. Psychiatric: Coperative. Nonsuicidal Musculoskeletal: No joint swelling or deformity. Normal range of motion. Results CBC & Chem 7: 01/31/21 08:41 01/31/21 08:41 Labs: Abnormal Lab Results - Last 24 Hours (Table) 01/31/21 01/31/21 01/31/21 Range/Units 08:41 08:41 08:41 WBC 15.4 H (3.8-10.6) k/uL RBC 4.22 L (4.30-5.90) m/uL Neutrophils # 13.1 H (1.3-7.7) k/uL Sodium 132 L (137-145) mmol/L Potassium 2.8 L (3.5-5.1) mmol/L Chloride 97 L (98-107) mmol/L Creatinine 0.65 L (0.66-1.25) mg/dL Glucose 163 H (74-99) mg/dL Calcium 7.5 L (8.4-10.2) mg/dL AST 83 H (17-59) U/L ALT 120 H (4-49) U/L Albumin 3.1 L (3.5-5.0) g/dL Coronavirus (PCR) Detected A (Not Detectd) Thrombosis Risk Factor Assmnt - DVT/VTE Prophylaxis DVT/VTE Prophylaxis: Pharmacologic Prophylaxis ordered Assessment and Plan Assessment: Acute hypoxic respiratory failure secondary to COVID-19 pneumonia. Patient has been having symptoms for the past 6 days. Possible superimposed bacterial pneumonia. Patient did COVID-19 vaccination History of prostate cancer History of trigeminal neuralgia Previous history of smoking DVT prophylaxis with Lovenox Plan: Patient will be continued on oxygen supplementation. Currently on 6 L oxygen via nasal cannula. Continue to titrate down oxygen. Patient will be started on dexamethasone 6 mg daily. Pulmonary was consulted a nd patient was started on REM district course on 01/31/2021. Follow-up information to [facility]. D-dimer, CRP, ferritin and LDH was ordered. Follow-up pro calcitonin level and Legionella urine antigen. Continue to follow closely. Time with Patient: Greater than 30
[2021-01-31] MEDS: CHOLECALCIFEROL 25 MCG (1000 IU) TABLET PO SCH (17:49)
[2021-01-31] MEDS: ASCORBIC ACID 500 MG TAB PO SCH (17:49)
[2021-01-31] MEDS: ZINC SULFATE 220 MG CAP PO SCH (18:50)
[2021-01-31] MEDS: ENOXAPARIN 40 MG/0.4 ML SYRINGE SQ SCH (18:50)
--- NOTE | 2021-02-01 07:31 | XR ---
EXAMINATION TYPE: XR chest 1V portable DATE OF EXAM: 02/01/2021 COMPARISON: 01/31/2021 HISTORY: 81 years Male. STUDY INDICATION GIVEN: pneumonia . TECHNIQUE: Portable AP upright chest radiograph FINDINGS AND IMPRESSION: Scattered bilateral patchy left greater than right opacities again seen likely representing multifoca l pneumonia with mild pulmonary edema. No significant change. No large pleural effusion, pneumothorax or cardiomegaly seen.
[2021-02-01] MEDS: ENOXAPARIN 40 MG/0.4 ML SYRINGE SQ SCH (09:00)
[2021-02-01] MEDS: ZINC SULFATE 220 MG CAP PO SCH (09:00)
[2021-02-01] MEDS: ASCORBIC ACID 500 MG TAB PO SCH (09:00)
[2021-02-01] MEDS: CHOLECALCIFEROL 25 MCG (1000 IU) TABLET PO SCH (09:00)
[2021-02-01] MEDS: DEXAMETHASONE SOD PHOSPHATE 10 MG/ML 1 ML VIAL IV SCH (09:00)
[2021-02-01] MEDS: AZITHROMYCIN 500 MG TAB PO SCH (09:00)
[2021-02-01 09:57] LABS: Basophils % (A) 0 %; Eosinophils # (A) 0.1 k/uL (0-0.7); Eosinophils % (A) 1 %; HGB 13.6 gm/dL (13.0-17.5); Lymphocytes # (A) 0.8 k/uL (1.0-4.8); Lymphocytes % (A) 6 %; MCH 33.1 pg (25.0-35.0); MCV 97.4 fL (80.0-100.0); Mean Platelet Volume 7.7; Monocytes # (A) 0.7 k/uL (0-1.0); Monocytes % (A) 5 %; Neutrophils # (A) 12.2 k/uL (1.3-7.7); Neutrophils % (A) 86 %; Platelet Count 442 k/uL (150-450); RBC 4.11 m/uL (4.30-5.90); RDW 13.7 % (11.5-15.5); WBC 14.2 k/uL (3.8-10.6)
[2021-02-01 10:08] LABS: African American GFR (CKD) >90 (>60 ml/min/1.73 sqM); Anion Gap 7 mmol/L; Blood Urea Nitrogen 14 mg/dL (9-20); Calcium 7.9 mg/dL (8.4-10.2); Carbon Dioxide 26 mmol/L (22-30); Chloride 103 mmol/L (98-107); Glucose 172 mg/dL (74-99); LDH 931 U/L (313-618); Non-African American GFR(CKD) >90 (>60 ml/min/1.73 sqM); Potassium 3.4 mmol/L (3.5-5.1); Sodium 136 mmol/L (137-145)
--- NOTE | 2021-02-01 11:41 | CT ---
EXAMINATION TYPE: CT angio chest DATE OF EXAM: 02/01/2021 11:25 AM COMPARISON: None HISTORY: Positive D-dimer CT DLP: 440.4 mGycm Automated exposure control for dose reduction was used. CONTRAST: CTA scan of the thorax is performed with IV Contrast, patient injected with 100 ml mL of Isovue 370, pulmonary embolism protocol. . FINDINGS: LUNGS: There is bilateral patchy airspace and groundglass like opacities with some nodular opacities are seen. No pneumothorax or pleural effusion. The trachea and bronchial tree are patent. Mediastinal lymph nodes noted. There is a 6.5 x 3.7 x 1.8 cm soft tissue mass in the precarinal space extending inferiorly to the level of the inferior mediastinum diaphragm with a vessel traversing this mass.. He art is normal in size and there is no pericardial effusion or reflux of contrast into the inferior ve na cava. Intracardiac calcifications are noted. Intrathoracic aorta small in course and caliber. MEDIASTINUM: There is satisfactory enhancement of the pulmonary trunk. There are nonocclusive filling defects in the right lobar pulmonary artery and right lower lobar pulmonary artery. OTHER: Thyroid gland is not enlarged. Bridging osteophytes seen along the ventral thoracic spine, co uld represent diffuse hepatic skeletal hyperostosis. No acute fracture or dislocation. Mild scoliotic curvature noted. No gastroesophageal hiatal hernia is seen. IMPRESSION: 1. ACUTE PULMONARY ARTERIAL EMBOLISM DESCRIBED IN BODY OF REPORT. 2. MULTIFOCAL PNEUMONIA. 3. THERE IS A 6.5 CM SOFT TISSUE MASS IN THE PRECARINAL SPACE WITH A VESSEL TRAVERSING THIS MASS, UNK NOWN ETIOLOGY COULD REPRESENT AN ENLARGED LYMPH NODE OR OTHER SOFT TISSUE MASS. FURTHER EVALUATION RECOMMENDED TO RULE OUT MALIGNANCY, CAN BE PERFORMED WITH SHORT-TERM REPEAT ENHANC ED CHEST CT IN 3 MONTHS. COMMUNICATION: Dr. López communicated the above critical results to patient's nurse Peyton Tillman on 02/01/2021 @ 11:37am who paged the hospitalist caring for this patient was paged directly to my phone to inform him with the above results but thus far the page has not been returned.
[2021-02-01] MEDS ORDERED: HEPARIN SODIUM 1,000 UN/ML (10ML VL) IV PRN (12:11)
[2021-02-01] MEDS ORDERED: HEPARIN SODIUM 1,000 UN/ML (10ML VL) IV ONE (12:11)
[2021-02-01] MEDS ORDERED: POTASSIUM CHLORIDE ER 20 MEQ TAB.ER PO STA (12:17)
[2021-02-01] MEDS: HEPARIN SOD,PORK IN 0.45% NACL 25,000 UNIT in 0.45% NACL 1 250ML.BAG IV SCH (12:45)
[2021-02-01 13:06] LABS: Partial Thromboplastin Time 25.3 sec (22.0-30.0); Prothrombin Time 10.6 sec (9.0-12.0)
--- NOTE | 2021-02-01 13:10 | P.PN ---
Subjective Progress Note Date: 02/01/21 Principal diagnosis: Coronavirus infection. This is a 81-year-old male patient of Dr. Garcia, with past medical history prostate cancer, trigeminal neuralgia, and former smoker, who came into the emergency department on 01/31/2021, for evaluation of difficulty breathing. He stated his symptom onset was about 6 days ago. Patient has completed his COVID-19 vaccination months ago. He reports 1 day of fever. Denies any chest pain or palpitations, headaches, loss of smell or taste, no nausea vomiting or diarrhea. In the emergency department his pulse ox on room air was 70%. 's placed on supplemental oxygen initially at 2 L. His pulse ox at home was 80% on room air. Chest x-ray shows perihilar airspace consolidation compatible with pneumonia. Currently his pulse ox is 90% on 6 L, his temp in the emergency department was 99.8F. Lab work shows a white blood cell, 15.4, hemoglobin is 14, lymphocyte count is 1.2, neutrophils are at 13.1, INR is 1.1, sodium is 132, potassium is 2.8, chloride is 97, BUN is 12, creatinine is 0.65 plasma lactic acid is 1.8, AST was 83, ALT was 120, troponin was less than 0.012, proBNP was 267. COVID-19 PCR was positive. Pro-calcitonin level was sent, and patient was also started on a combination of azithromycin and Rocephin for possibility of concurrent bacterial pneumonia. He was started on prophylactic anticoagulation and form of Lovenox. Patient is still within the window for Remdesivir treatment and he will be started on the today. Progress note dated 02/01/2021. This is a 81-year-old male, who was seen in the emergency department yesterday. He has a history of prostate cancer, trigeminal neuralgia, previous tobacco use, and more recently, COVID 19 infection/pneumonia. The patient was admitted to the hospital. He was started on usual medications including REM. Today, we noticed an increase in his d-dimer up to nearly 9, a CT angiogram was done, and revealed evidence of pulmonary embolism. There were nonocclusive filling defects in the right lobar pulmonary artery and right lower lobe pulmonary artery. In addition, there was mediastinal lymph nodes, and a 6.5 x 3.7 x 1.8, soft tissue mass in the precarinal space extending inferiorly to the level of the inferior mediastinum. The patient was immediately started on IV heparin. Today's labs show a white count of 14.2, hemoglobin 13.6, hematocrit 40.0, and platelet count that was normal. Sodium 136, potassium 3.4, chlorides 103, CO2 26, anion gap 7, BUN 14, creatinine 0.68. Clinically, the patient is feeling much improved. Objective - Vital Signs Vital signs: Vital Signs Temp 98.1 F 02/01/21 08:00 Pulse 74 02/01/21 08:00 Resp 18 02/01/21 08:00 BP 146/68 02/01/21 08:00 Pulse Ox 99 02/01/21 08:00 Intake & Output 01/31/21 02/01/21 02/01/21 18:59 06:59 18:59 Intake Total 240 180 Balance 240 180 Weight 88.904 kg 88.5 kg Intake: Oral 240 180 Other: Voiding Method Urinal Urinal # Voids 0 2 1 # Bowel Movements 2 - Exam No acute distress, oriented 3. 8 L high flow saturations are 99%. The patient is not demonstrating any evidence of conversational dyspnea or use of accessory muscles. HEENT examination is grossly unremarkable. Neck supple. Full range of motion. No adenopathy thyromegaly or neck vein distention. Cardiovascular examination reveals regular rhythm rate. S1-S2 normal. No S3 or S4. No discernible murmur noted. Heart sounds are distant. Heart rate 74 bpm. Lungs reveal scattered bilateral rhonchi. Breath sounds are equal bilaterally. No wheezes or crackles. Abdomen soft bowel sounds are heard. No masses or tenderness. Extremities are intact. No cyanosis clubbing or edema. Skin is without rash or lesion. Neurologic examination is brief but nonfocal. - Labs CBC & Chem 7: 02/01/21 09:21 02/01/21 09:21 Labs: Abnormal Lab Results - Last 24 Hours (Table) 01/31/21 01/31/21 02/01/21 Range/Units 15:27 15:27 09: WBC (3.8-10.6) k/uL RBC (4.30-5.90) m/uL Neutrophils # (1.3-7.7) k/uL Lymphocytes # (1.0-4.8) k/uL D-Dimer 8.93 H 8.83 H (<0.60) mg/L FEU Sodium (137-145) mmol/L Potassium (3.5-5.1) mmol/L Glucose (74-99) mg/dL Calcium (8.4-10.2) mg/dL Lactate Dehydrogenase 966 H (313-618) U/L C-Reactive Protein 19.3 H (<1.0) mg/dL 02/01/21 02/01/21 Range/Units 09: 09:21 WBC 14.2 H (3.8-10.6) k/uL RBC 4.11 L (4.30-5.90) m/uL Neutrophils # 12.2 H (1.3-7.7) k/uL Lymphocytes # 0.8 L (1.0-4.8) k/uL D-Dimer (<0.60) mg/L FEU Sodium 136 L (137-145) mmol/L Potassium 3.4 L (3.5-5.1) mmol/L Glucose 172 H (74-99) mg/dL Calcium 7.9 L (8.4-10.2) mg/dL Lactate Dehydrogenase 931 H (313-618) U/L C-Reactive Protein 16.0 H (<1.0) mg/dL Microbiology - Last 24 Hours (Table) 01/31/21 11:21 Gram Stain - Preliminary Sputum Sputum Culture - Preliminary Assessment and Plan Assessment: Acute hypoxemic respiratory failure secondary to coronavirus related pneumonia. CT angiogram evidence of pulmonary embolism. Large mediastinal mass, seen on computed tomography scan. Possible bilateral bacterial pneumonia. History of chronic tobacco use. History of prostate cancer. History of trigeminal neuralgia. Plan: Plan dated 02/01/2021. The patient was placed on IV heparin. He received a bolus and a drip. The patient is currently on REM. He also remains on Zithromax and Rocephin. He continues on Decadron. Additional recommendations and suggestions are forthcoming. We will continue to follow. The patient will eventually need a biopsy. Currently, clinically, he is feeling a bit better. Time with Patient: Less than 30
[2021-02-01] MEDS: REMDESIVIR 100 MG in SODIUM CHLORIDE 0.9% 250 ML IVPB SCH (15:00)
--- NOTE | 2021-02-01 16:42 | P.PN ---
Subjective Progress Note Date: 02/01/21 Principal diagnosis: Acute COVID-19 pneumonia Patient is a 19-year-old male with a known history of prostate cancer, trigeminal neuralgia, previous history of smoking presents ER with the complaints of difficulty in breathing. Patient says that he has been having symptoms for the past 6 days. Also complaining of fever. Does have cough without sputum production. No complaints of nausea and vomiting or abdominal pain or diarrhea. Denied any loss of taste are. On admission T-max 99.8 and also 101 and respirations 22 pulse ox and was documented. Chest x-ray showed perihilar airspace consolidation compatible with pneumonia. EKG showed sinus tachycardia Laboratory data showed dullness he 15.4 hemoglobin 14.0 and platelets 397, d- dimer 8.93 Sodium 132 potassium 2.8) 97 BUN 12 and creatinine 0.65 magnesium 2.3 AST 83 and alk phos 101 ALT 120, LDH 966, CRP 19.3 COVID-19 PCR detected. 02/01/2021 Patient is currently lying in the bed awake alert and when 3. Patient is requiring oxygen at 6-8 L high flow. No complaints of chest pain or worsening shortness of breath. Feeling better today. Patient had CT angiogram was done due to elevated d-dimer level. CTA showed acute pulmonary arterial embolism. Multifocal pneumonia. There is a 6.5 cm soft tissue mass in the precarinal space with a basal traversing this mass. Patient was started on heparin drip immediately. Laboratory data showed WBC 14.2 hemoglobin 13.6 and platelets 442, d-dimer 8.93 Sodium 136 potassium 3.4 chloride 103 BUN 14 and creatinine 0.68 and calcium 7.9 LDH 931, CRP 16.0 and pro-calcitonin level is 0.15 Pulmonary is on board. Current medications reviewed. Objective - Vital Signs Vital signs: Vital Signs Temp 98.1 F 02/01/21 08:00 Pulse 74 02/01/21 08:00 Resp 18 02/01/21 08:00 BP 146/68 02/01/21 08:00 Pulse Ox 99 02/01/21 08:00 Intake & Output 01/31/21 02/01/21 02/01/21 18:59 06:59 18:59 Intake Total 240 180 Balance 240 180 Weight 88.904 kg 88.5 kg Intake: Oral 240 180 Other: Voiding Method Urinal Urinal # Voids 0 2 1 # Bowel Movements 2 - Exam PHYSICAL EXAMINATION: Patient is lying in the bed comfortably, no acute distress, awake alert and oriented.. HEENT: Normocephalic. Neck is supple. Pupils reactive. Nostrils clear. Oral cavity is moist. Neck reveals no JVD, carotid bruits, or thyromegaly. CHEST EXAMINATION: Trachea is central. Symmetrical expansion. Scattered course breath sounds and crackles. No wheezing or rhonchi.. CARDIAC: Normal S1, S2 with no gallops. No murmurs ABDOMEN: Soft. Bowel sounds normal. No organomegaly. No abdominal bruits. Extremities: reveal no edema. No clubbing or cyanosis Neurologically awake, alert, oriented x3 with well-coordinated movements. No focal deficits noted Skin: No rash or skin lesions. Psychiatric: Coperative. Nonsuicidal Musculoskeletal: No joint swelling or deformity. Normal range of motion. - Labs CBC & Chem 7: 02/01/21 09:21 02/01/21 09:21 Labs: Abnormal Lab Results - Last 24 Hours (Table) 01/31/21 01/31/21 02/01/21 Range/Units 15:27 15:27 09:21 WBC (3.8-10.6) k/uL RBC (4.30-5.90) m/uL Neutrophils # (1.3-7.7) k/uL Lymphocytes # (1.0-4.8) k/uL D-Dimer 8.93 H 8.83 H (<0.60) mg/L FEU Sodium (137-145) mmol/L Potassium (3.5-5.1) mmol/L Glucose (74-99) mg/dL Calcium (8.4-10.2) mg/dL Lactate Dehydrogenase 966 H (313-618) U/L C-Reactive Protein 19.3 H (<1.0) mg/dL 02/01/21 02/01/21 Range/Units 09:21 09:21 WBC 14.2 H (3.8-10.6) k/uL RBC 4.11 L (4.30-5.90) m/uL Neutrophils # 12.2 H (1.3-7.7) k/uL Lymphocytes # 0.8 L (1.0-4.8) k/uL D-Dimer (<0.60) mg/L FEU Sodium 136 L (137-145) mmol/L Potassium 3.4 L (3.5-5.1) mmol/L Glucose 172 H (74-99) mg/dL Calcium 7.9 L (8.4-10.2) mg/dL Lactate Dehydrogenase 931 H (313-618) U/L C-Reactive Protein 16.0 H (<1.0) mg/dL Microbiology - Last 24 Hours (Table) 01/31/21 11:21 Gram Stain - Preliminary Sputum Sputum Culture - Preliminary Assessment and Plan Assessment: Acute pulmonary embolism 6.5 cm mediastinal mass Acute hypoxic respiratory failure secondary to COVID-19 pneumonia and acute PE. Patient has been having symptoms for the past 6 days. Possible superimposed bacterial pneumonia. Patient did COVID-19 vaccination History of prostate cancer History of trigeminal neuralgia Previous history of smoking DVT prophylaxis with Lovenox Plan: Patient will be continued on oxygen supplementation. Currently on 8 L oxygen via nasal cannula. Continue to titrate down oxygen. Patient was started on heparin drip. Continue on dexamethasone 6 mg daily. Pulmonary is following. was started on REM district course on 01/31/2021. Follow-up D-dimer, CRP, ferritin and LDH.. Pro-calcitonin level is slightly elevated. Legionella antigen is negative.. Patient is being continued on antibiotics in the form of ceftriaxone and azithromycin. Patient will need medication biopsy. Prognosis is guarded. Time with Patient: Greater than 30
[2021-02-01] MEDS ORDERED: MELATONIN 3 MG TABLET PO PRN (20:11)
[2021-02-01] MEDS: BENZOCAINE/MENTHOL LOZENG 1 EACH LOZENGE MUCOUS MEM PRN (20:42)
[2021-02-02] MEDS: BENZOCAINE/MENTHOL LOZENG 1 EACH LOZENGE MUCOUS MEM PRN ×3 (01:09→15:59)
[2021-02-02] MEDS: HEPARIN SOD,PORK IN 0.45% NACL 25,000 UNIT in 0.45% NACL 1 250ML.BAG IV SCH (02:31)
[2021-02-02 08:49] LABS: Basophils # (A) 0.1 k/uL (0-0.2); Basophils % (A) 0 %; Eosinophils # (A) 0.3 k/uL (0-0.7); Eosinophils % (A) 2 %; HCT 39.2 % (39.0-53.0); HGB 13.1 gm/dL (13.0-17.5); Lymphocytes % (A) 7 %; MCH 32.6 pg (25.0-35.0); MCHC 33.3 g/dL (31.0-37.0); MCV 97.8 fL (80.0-100.0); Mean Platelet Volume 7.8; Monocytes % (A) 6 %; Neutrophils # (A) 13.2 k/uL (1.3-7.7); Neutrophils % (A) 83 %; Platelet Count 490 k/uL (150-450); RBC 4.01 m/uL (4.30-5.90); RDW 13.7 % (11.5-15.5); WBC 15.8 k/uL (3.8-10.6)
[2021-02-02] MEDS: DEXAMETHASONE SOD PHOSPHATE 10 MG/ML 1 ML VIAL IV SCH (09:00)
[2021-02-02] MEDS: ASCORBIC ACID 500 MG TAB PO SCH (09:21)
[2021-02-02] MEDS: CHOLECALCIFEROL 25 MCG (1000 IU) TABLET PO SCH (09:21)
[2021-02-02] MEDS: ZINC SULFATE 220 MG CAP PO SCH (09:21)
[2021-02-02] MEDS: AZITHROMYCIN 500 MG TAB PO SCH (09:21)
[2021-02-02] MEDS: RIVAROXABAN 15 MG TAB PO SCH ×2 (10:30→21:13)
--- NOTE | 2021-02-02 11:53 | P.PN ---
Subjective Progress Note Date: 02/02/21 Principal diagnosis: Coronavirus infection. This is a 81-year-old male patient of Dr. Garcia, with past medical history prostate cancer, trigeminal neuralgia, and former smoker, who came into the emergency department on 01/31/2021, for evaluation of difficulty breathing. He stated his symptom onset was about 6 days ago. Patient has completed his COVID-19 vaccination months ago. He reports 1 day of fever. Denies any chest pain or palpitations, headaches, loss of smell or taste, no nausea vomiting or diarrhea. In the emergency department his pulse ox on room air was 70%. 's placed on supplemental oxygen initially at 2 L. His pulse ox at home was 80% on room air. Chest x-ray shows perihilar airspace consolidation compatible with pneumonia. Currently his pulse ox is 90% on 6 L, his temp in the emergency department was 99.8F. Lab work shows a white blood cell, 15.4, hemoglobin is 14, lymphocyte count is 1.2, neutrophils are at 13.1, INR is 1.1, sodium is 132, potassium is 2.8, chloride is 97, BUN is 12, creatinine is 0.65 plasma lactic acid is 1.8, AST was 83, ALT was 120, troponin was less than 0.012, proBNP was 267. COVID-19 PCR was positive. Pro-calcitonin level was sent, and patient was also started on a combination of azithromycin and Rocephin for possibility of concurrent bacterial pneumonia. He was started on prophylactic anticoagulation and form of Lovenox. Patient is still within the window for Remdesivir treatment and he will be started on the today. Progress note dated 02/01/2021. This is a 81-year-old male, who was seen in the emergency department yesterday. He has a history of prostate cancer, trigeminal neuralgia, previous tobacco use, and more recently, COVID 19 infection/pneumonia. The patient was admitted to the hospital. He was started on usual medications including REM. Today, we noticed an increase in his d-dimer up to nearly 9, a CT angiogram was done, and revealed evidence of pulmonary embolism. There were nonocclusive filling defects in the right lobar pulmonary artery and right lower lobe pulmonary artery. In addition, there was mediastinal lymph nodes, and a 6.5 x 3.7 x 1.8, soft tissue mass in the precarinal space extending inferiorly to the level of the inferior mediastinum. The patient was immediately started on IV heparin. Today's labs show a white count of 14.2, hemoglobin 13.6, hematocrit 40.0, and platelet count that was normal. Sodium 136, potassium 3.4, chlorides 103, CO2 26, anion gap 7, BUN 14, creatinine 0.68. Clinically, the patient is feeling much improved. Progress note dated 02/02/2021. 81-year-old male, seen in the emergency department for coronavirus pneumonia. In addition, because of an elevated d-dimer, the patient had a CT angiogram which revealed a pulmonary embolism. The patient was placed on IV heparin, and now switched to a factor X a inhibitor. Also, unexpectedly, the patient was found on computed tomography scan to have a mediastinal mass. I did let the patient know about the abnormality, and mention to him that we would treat his coronavirus infection, his PE, and likely evaluate and biopsy his mass, once he is an outpatient. The patient was a smoker in the past. He probably will benefit also from an outpatient PET scan. He is feeling a bit better today, but remains on 8 L oxygen. White count 15.8, hemoglobin 13.1, hematocrit 39.2, and platelet count 490,000. His PTT is 45.4. CT angiogram from February 01 is reviewed. Objective - Vital Signs Vital signs: Vital Signs Temp 98.1 F 02/02/21 11:28 Pulse 76 02/02/21 11:28 Resp 18 02/02/21 11:28 BP 136/73 02/02/21 08:00 Pulse Ox 99 02/02/21 11:28 Intake & Output 02/01/21 02/02/21 02/02/21 18:59 06:59 18:59 Intake Total 1457 207.001 100 Output Total 400 200 Balance 1057 7.001 100 Weight 88 kg Intake: Intake, IV Titration 207.001 Amount Heparin Sod,Pork in 0.45% 207.001 NaCl 25,000 unit In 0.45 % NaCl 1 250ml.bag @ 18 UNITS/KG/HR 15.93 mls/hr IV .[id number] [facility] Rx#: [id number] Oral 1457 100 Output: Urine 400 200 Other: Voiding Method Urinal Urinal Urinal # Voids 1 2 1 # Bowel Movements 2 1 - Exam No acute distress, oriented 3. 8 L high flow saturations are 99%. The patient is not demonstrating any evidence of conversational dyspnea or use of accessory muscles. HEENT examination is grossly unremarkable. Neck supple. Full range of motion. No adenopathy thyromegaly or neck vein dis tention. Cardiovascular examination reveals regular rhythm rate. S1-S2 normal. No S3 or S4. No discernible murmur noted. Heart sounds are distant. Heart rate 76 bpm. Lungs reveal scattered bilateral rhonchi. Breath sounds are equal bilaterally. No wheezes or crackles. Abdomen soft bowel sounds are heard. No masses or tenderness. Extremities are intact. No cyanosis clubbing or edema. Skin is without rash or lesion. Neurologic examination is brief but nonfocal. - Labs CBC & Chem 7: 02/02/21 08:07 02/01/21 09:21 Labs: Abnormal Lab Results - Last 24 Hours (Table) 01/31/21 02/01/21 02/02/21 Range/Units 15:27 19:09 01:22 WBC (3.8-10.6) k/uL RBC (4.30-5.90) m/uL Plt Count (150-450) k/uL Neutrophils # (1.3-7.7) k/uL APTT 89.5 H 78.9 H (22.0-30.0) sec Procalcitonin 0.15 H (0.02-0.09) ng/mL 02/02/21 02/02/21 Range/Units 08:07 08:07 WBC 15.8 H (3.8-10.6) k/uL RBC 4.01 L (4.30-5.90) m/uL Plt Count 490 H (150-450) k/uL Neutrophils # 13.2 H (1.3-7.7) k/uL APTT 45.4 H (22.0-30.0) sec Procalcitonin (0.02-0.09) ng/mL Microbiology - Last 24 Hours (Table) 01/31/21 10:53 Blood Culture - Preliminary Blood No Growth after 24 hours 01/31/21 11:12 Blood Culture - Preliminary Blood No Growth after 24 hours 01/31/21 11:21 Gram Stain - Preliminary Sputum Sputum Culture - Preliminary Assessment and Plan Assessment: Acute hypoxemic respiratory failure secondary to coronavirus related pneumonia. CT angiogram evidence of pulmonary embolism. Large mediastinal mass, seen on computed tomography scan, measuring 6.5 x 3.7 x 1.8 cm. Possible bilateral bacterial pneumonia. History of chronic tobacco use. History of prostate cancer. History of trigeminal neuralgia. Plan: Plan dated 02/01/2021. The patient was placed on IV heparin. He received a bolus and a drip. The patient is currently on REM. He also remains on Zithromax and Rocephin. He continues on Decadron. Additional recommendations and suggestions are forthcoming. We will continue to follow. The patient will eventually need a biopsy. Currently, clinically, he is feeling a bit better. Plan dated 02/02/2021. The patient remains on Rocephin. In addition, the patient is on REM. His IV heparin is discontinued in favor of xarelto. His other medications include vitamin C, vitamin D3, and zinc. I explained to the patient that we found the mass, on CT angiogram. He understands currently, is most important to treat his coronavirus infection, as well as his pulmonary embolism. The evaluation and diagnosis of this mass, can be done as an outpatient. He does need a outpatient PET scan. Time with Patient: Less than 30
[2021-02-02] MEDS: REMDESIVIR 100 MG in SODIUM CHLORIDE 0.9% 250 ML IVPB SCH (15:15)
[2021-02-02] MEDS: MELATONIN 3 MG TABLET PO PRN (21:24)
--- NOTE | 2021-02-02 23:25 | P.PN ---
Subjective Progress Note Date: 02/02/21 Principal diagnosis: Acute COVID-19 pneumonia Patient is a 19-year-old male with a known history of prostate cancer, trigeminal neuralgia, previous history of smoking presents ER with the complaints of difficulty in breathing. Patient says that he has been having symptoms for the past 6 days. Also complaining of fever. Does have cough without sputum production. No complaints of nausea and vomiting or abdominal pain or diarrhea. Denied any loss of taste are. On admission T-max 99.8 and also 101 and respirations 22 pulse ox and was documented. Chest x-ray showed perihilar airspace consolidation compatible with pneumonia. EKG showed sinus tachycardia Laboratory data showed dullness he 15.4 hemoglobin 14.0 and platelets 397, d- dimer 8.93 Sodium 132 potassium 2.8) 97 BUN 12 and creatinine 0.65 magnesium 2.3 AST 83 and alk phos 101 ALT 120, LDH 966, CRP 19.3 COVID-19 PCR detected. 02/01/2021 Patient is currently lying in the bed awake alert and when 3. Patient is requiring oxygen at 6-8 L high flow. No complaints of chest pain or worsening shortness of breath. Feeling better today. Patient had CT angiogram was done due to elevated d-dimer level. CTA showed acute pulmonary arterial embolism. Multifocal pneumonia. There is a 6.5 cm soft tissue mass in the precarinal space with a basal traversing this mass. Patient was started on heparin drip immediately. Laboratory data showed WBC 14.2 hemoglobin 13.6 and platelets 442, d-dimer 8.93 Sodium 136 potassium 3.4 chloride 103 BUN 14 and creatinine 0.68 and calcium 7.9 LDH 931, CRP 16.0 and pro-calcitonin level is 0.15 Pulmonary is on board. 02/02/2021 Patient is currently lying in the bed. Awake alert and oriented. Saturating at 94% on 8 L high flow oxygen. CT angiogram showed pulmonary embolism and patient is currently on heparin drip which is being changed to Xarelto 50 mg twice daily. Patient was also found to have mediastinal mass. Outpatient follow-up with pulmonary for biopsy once COVID-19 symptoms resolved. Laboratory data showed WBC 15.8 hemoglobin 13.1 and platelets 490 Cultures showed no growth so far. Patient is being continued on antibiotics at home ceftriaxone. Continue with remdesivir, dexamethasone and anticoagulation. Pulmonary is on board. Current medications reviewed. Current medications reviewed. Objective - Vital Signs Vital signs: Vital Signs Temp 98.3 F 02/02/21 08:00 Pulse 86 02/02/21 08:00 Resp 18 02/02/21 08:00 BP 136/73 02/02/21 08:00 Pulse Ox 94 L 02/02/21 08:00 Intake & Output 02/01/21 02/02/21 02/02/21 18:59 06:59 18:59 Intake Total 1457 207.001 100 Output Total 400 200 Balance 1057 7.001 100 Weight 88 kg Intake: Intake, IV Titration 207.001 Amount Heparin Sod,Pork in 0.45% 207.001 NaCl 25,000 unit In 0.45 % NaCl 1 250ml.bag @ 18 UNITS/KG/HR 15.93 mls/hr IV .[id number] [facility] Rx#: [id number] Oral 1457 100 Output: Urine 400 200 Other: Voiding Method Urinal Urinal Urinal # Voids 1 2 1 # Bowel Movements 2 1 - Exam PHYSICAL EXAMINATION: Patient is lying in the bed comfortably, no acute distress, awake alert and oriented.. HEENT: Normocephalic. Neck is supple. Pupils reactive. Nostrils clear. Oral cavity is moist. Neck reveals no JVD, carotid bruits, or thyromegaly. CHEST EXAMINATION: Trachea is central. Symmetrical expansion. Scattered course breath sounds and crackles. No wheezing or rhonchi.. CARDIAC: Normal S1, S2 with no gallops. No murmurs ABDOMEN: Soft. Bowel sounds normal. No organomegaly. No abdominal bruits. Extremities: reveal no edema. No clubbing or cyanosis Neurologically awake, alert, oriented x3 with well-coordinated movements. No focal deficits noted Skin: No rash or skin lesions. Psychiatric: Coperative. Nonsuicidal Musculoskeletal: No joint swelling or deformity. Normal range of motion. - Labs CBC & Chem 7: 02/02/21 08:07 02/01/21 09:21 Labs: Abnormal Lab Results - Last 24 Hours (Table) 01/31/21 02/01/21 02/02/21 Range/Units 15:27 19:09 01:22 WBC (3.8-10.6) k/uL RBC (4.30-5.90) m/uL Plt Count (150-450) k/uL Neutrophils # (1.3-7.7) k/uL APTT 89.5 H 78.9 H (22.0-30.0) sec Procalcitonin 0.15 H (0.02-0.09) ng/mL 02/02/21 02/02/21 Range/Units 08:07 08:07 WBC 15.8 H (3.8-10.6) k/uL RBC 4.01 L (4.30-5.90) m/uL Plt Count 490 H (150-450) k/uL Neutrophils # 13.2 H (1.3-7.7) k/uL APTT 45.4 H (22.0-30.0) sec Procalcitonin (0.02-0.09) ng/mL Microbiology - Last 24 Hours (Table) 01/31/21 10:53 Blood Culture - Preliminary Blood No Growth after 24 hours 01/31/21 11:12 Blood Culture - Preliminary Blood No Growth after 24 hours 01/31/21 11:21 Gram Stain - Preliminary Sputum Sputum Culture - Preliminary Assessment and Plan Assessment: Acute pulmonary embolism 6.5 cm mediastinal mass Acute hypoxic respiratory failure secondary to COVID-19 pneumonia and acute PE. Patient has been having symptoms for the past 6 days. Possible superimposed bacterial pneumonia. Patient did COVID-19 vaccination History of prostate cancer History of trigeminal neuralgia Previous history of smoking DVT prophylaxis with Lovenox Plan: Patient will be continued on oxygen supplementation. Currently on 8 L oxygen via nasal cannula. Continue to titrate down oxygen. Patient was started on heparin drip. chnaged to Xarelto Continue on dexamethasone 6 mg daily. Pulmonary is following. was started on REM district course on 01/31/2021. Follow-up D-dimer, CRP, ferritin and LDH.. Pro-calcitonin level is slightly elevated. Legionella antigen is negative.. Patient is being continued on antibiotics in the form of ceftriaxone. Patient will need mediastinal biopsy. Prognosis is guarded. Time with Patient: Greater than 30
[2021-02-03 07:39] LABS: Basophils % (A) 0 %; Eosinophils # (A) 0.4 k/uL (0-0.7); Eosinophils % (A) 3 %; HCT 39.9 % (39.0-53.0); HGB 13.3 gm/dL (13.0-17.5); Lymphocytes # (A) 1.1 k/uL (1.0-4.8); Lymphocytes % (A) 8 %; MCH 32.6 pg (25.0-35.0); MCHC 33.5 g/dL (31.0-37.0); MCV 97.3 fL (80.0-100.0); Mean Platelet Volume 7.4; Monocytes # (A) 0.7 k/uL (0-1.0); Monocytes % (A) 5 %; Neutrophils % (A) 82 %; Platelet Count 533 k/uL (150-450); RDW 13.7 % (11.5-15.5); WBC 14.5 k/uL (3.8-10.6)
[2021-02-03] MEDS: DEXAMETHASONE SOD PHOSPHATE 10 MG/ML 1 ML VIAL IV SCH (07:46)
[2021-02-03] MEDS: RIVAROXABAN 15 MG TAB PO SCH ×2 (07:46→20:22)
[2021-02-03] MEDS: ASCORBIC ACID 500 MG TAB PO SCH (07:46)
[2021-02-03] MEDS: CHOLECALCIFEROL 25 MCG (1000 IU) TABLET PO SCH (07:46)
[2021-02-03] MEDS: ZINC SULFATE 220 MG CAP PO SCH (07:46)
[2021-02-03 07:47] LABS: African American GFR (CKD) >90 (>60 ml/min/1.73 sqM); Anion Gap 8 mmol/L; Blood Urea Nitrogen 17 mg/dL (9-20); Calcium 8.4 mg/dL (8.4-10.2); Carbon Dioxide 25 mmol/L (22-30); Chloride 103 mmol/L (98-107); Glucose 139 mg/dL (74-99); Non-African American GFR(CKD) >90 (>60 ml/min/1.73 sqM); Potassium 3.7 mmol/L (3.5-5.1); Sodium 136 mmol/L (137-145)
--- NOTE | 2021-02-03 12:34 | P.PN ---
Subjective Progress Note Date: 02/03/21 Principal diagnosis: Coronavirus infection. This is a 81-year-old male patient of Dr. Garcia, with past medical history prostate cancer, trigeminal neuralgia, and former smoker, who came into the emergency department on 01/31/2021, for evaluation of difficulty breathing. He stated his symptom onset was about 6 days ago. Patient has completed his COVID-19 vaccination months ago. He reports 1 day of fever. Denies any chest pain or palpitations, headaches, loss of smell or taste, no nausea vomiting or diarrhea. In the emergency department his pulse ox on room air was 70%. 's placed on supplemental oxygen initially at 2 L. His pulse ox at home was 80% on room air. Chest x-ray shows perihilar airspace consolidation compatible with pneumonia. Currently his pulse ox is 90% on 6 L, his temp in the emergency department was 99.8F. Lab work shows a white blood cell, 15.4, hemoglobin is 14, lymphocyte count is 1.2, neutrophils are at 13.1, INR is 1.1, sodium is 132, potassium is 2.8, chloride is 97, BUN is 12, creatinine is 0.65 plasma lactic acid is 1.8, AST was 83, ALT was 120, troponin was less than 0.012, proBNP was 267. COVID-19 PCR was positive. Pro-calcitonin level was sent, and patient was also started on a combination of azithromycin and Rocephin for possibility of concurrent bacterial pneumonia. He was started on prophylactic anticoagulation and form of Lovenox. Patient is still within the window for Remdesivir treatment and he will be started on the today. Progress note dated 02/01/2021. This is a 81-year-old male, who was seen in the emergency department yesterday. He has a history of prostate cancer, trigeminal neuralgia, previous tobacco use, and more recently, COVID 19 infection/pneumonia. The patient was admitted to the hospital. He was started on usual medications including REM. Today, we noticed an increase in his d-dimer up to nearly 9, a CT angiogram was done, and revealed evidence of pulmonary embolism. There were nonocclusive filling defects in the right lobar pulmonary artery and right lower lobe pulmonary artery. In addition, there was mediastinal lymph nodes, and a 6.5 x 3.7 x 1.8, soft tissue mass in the precarinal space extending inferiorly to the level of the inferior mediastinum. The patient was immediately started on IV heparin. Today's labs show a white count of 14.2, hemoglobin 13.6, hematocrit 40.0, and platelet count that was normal. Sodium 136, potassium 3.4, chlorides 103, CO2 26, anion gap 7, BUN 14, creatinine 0.68. Clinically, the patient is feeling much improved. Progress note dated 02/02/2021. 81-year-old male, seen in the emergency department for coronavirus pneumonia. In addition, because of an elevated d-dimer, the patient had a CT angiogram which revealed a pulmonary embolism. The patient was placed on IV heparin, and now switched to a factor X a inhibitor. Also, unexpectedly, the patient was found on computed tomography scan to have a mediastinal mass. I did let the patient know about the abnormality, and mention to him that we would treat his coronavirus infection, his PE, and likely evaluate and biopsy his mass, once he is an outpatient. The patient was a smoker in the past. He probably will benefit also from an outpatient PET scan. He is feeling a bit better today, but remains on 8 L oxygen. White count 15.8, hemoglobin 13.1, hematocrit 39.2, and platelet count 490,000. His PTT is 45.4. CT angiogram from February 01 is reviewed. Progress note dated 02/03/2021. 81-year-old male, seen initially in the emergency department, for coronavirus pneumonia. The patient was also found to have a pulmonary embolism on CT angiogram. In addition, unexpectedly, the patient was found to have a large lung mass. Currently, he is on 8 L nasal cannula. The patient states that he wants to go home to take care of his . He cannot go home on this much oxygen. I did explain to the patient that when he is feeling better, we would evaluate further, the lung mass. He would likely need an outpatient PET scan, and a biopsy. White count 14.5, hemoglobin 13.3, hematocrit 39.9, platelet count 533,000. Sodium 136, potassium 3.7, chlorides 103, CO2 25, anion gap 8, BUN 17, creatinine 0.7. Objective - Vital Signs Vital signs: Vital Signs Temp 97.3 F L 02/03/21 11:38 Pulse 87 02/03/21 11:38 Resp 18 02/03/21 11:38 BP 150/81 02/03/21 11:38 Pulse Ox 94 L 02/03/21 11:38 Intake & Output 02/02/21 02/03/21 02/03/21 18:59 06:59 18:59 Intake Total 100 485 520 Output Total 250 100 Balance 100 235 420 Weight 88.5 kg Intake: Oral 100 485 520 Output: Urine 250 100 Other: Voiding Method Urinal Urinal Urinal # Voids 1 1 # Bowel Movements 1 2 - Exam No acute distress, oriented 3. 8 L high flow saturations are 99%. The patient is not demonstrating any evidence of conversational dyspnea or use of accessory muscles. HEENT examination is grossly unremarkable. Neck supple. Full range of motion. No adenopathy thyromegaly or neck vein distention. Cardiovascular examination reveals regular rhythm rate. S1-S2 normal. No S3 or S4. No discernible murmur noted. Heart sounds are distant. Heart rate 87 bpm. Lungs reveal scattered bilateral rhonchi. Breath sounds are equal bilaterally. No wheezes or crackles. Abdomen soft bowel sounds are heard. No masses or tenderness. Extremities are intact. No cyanosis clubbing or edema. Skin is without rash or lesion. Neurologic examination is brief but nonfocal. - Labs CBC & Chem 7: 02/03/21 07:16 02/03/21 07:16 Labs: Abnormal Lab Results - Last 24 Hours (Table) 02/03/21 02/03/21 Range/Units 07:16 07:16 WBC 14.5 H (3.8-10.6) k/uL RBC 4.10 L (4.30-5.90) m/uL Plt Count 533 H (150-450) k/uL Neutrophils # 12.0 H (1.3-7.7) k/uL Sodium 136 L (137-145) mmol/L Glucose 139 H (74-99) mg/dL Microbiology - Last 24 Hours (Table) 01/31/21 11:21 Gram Stain - Preliminary Sputum Sputum Culture - Preliminary 01/31/21 10:53 Blood Culture - Preliminary Blood No Growth after 48 hours 01/31/21 11:12 Blood Culture - Preliminary Blood No Growth after 48 hours Assessment and Plan Assessment: Acute hypoxemic respiratory failure secondary to coronavirus related pneumonia. CT angiogram evidence of pulmonary embolism. Large mediastinal mass, seen on computed tomography scan, measuring 6.5 x 3.7 x 1.8 cm. Possible bilateral bacterial pneumonia. History of chronic tobacco use. History of prostate cancer. History of trigeminal neuralgia. Plan: Plan dated 02/01/2021. The patient was placed on IV heparin. He received a bolus and a drip. The patient is currently on REM. He also remains on Zithromax and Rocephin. He continues on Decadron. Additional recommendations and suggestions are forthcoming. We will continue to follow. The patient will eventually need a biopsy. Currently, clinically, he is feeling a bit better. Plan dated 02/02/2021. The patient remains on Rocephin. In addition, the patient is on REM. His IV heparin is discontinued in favor of xarelto. His other medications include vitamin C, vitamin D3, and zinc. I explained to the patient that we found the mass, on CT angiogram. He understands currently, is most important to treat his coronavirus infection, as well as his pulmonary embolism. The evaluation and diagnosis of this mass, can be done as an outpatient. He does need a outpatient PET scan. Plan dated 02/03/2021. Currently, the patient's doing a bit better clinically. His nasal O2 was turned down from 8 L/m, down to 6 L/m. I told him once he is down to 4 L, he could be considered for discharge. The patient remains on a factor X a inhibitor. He states that his breathing is much improved. He also remains on vitamins, as well as Decadron. The patient did receive REM. We will continue to follow the patient and make recommendations where appropriate. Time with Patient: Less than 30
[2021-02-03] MEDS: REMDESIVIR 100 MG in SODIUM CHLORIDE 0.9% 250 ML IVPB SCH (14:45)
[2021-02-03] MEDS: MELATONIN 3 MG TABLET PO PRN (20:23)
--- NOTE | 2021-02-04 00:16 | P.PN ---
Subjective Progress Note Date: 02/03/21 Principal diagnosis: Acute COVID-19 pneumonia Patient is a 19-year-old male with a known history of prostate cancer, trigeminal neuralgia, previous history of smoking presents ER with the complaints of difficulty in breathing. Patient says that he has been having symptoms for the past 6 days. Also complaining of fever. Does have cough without sputum production. No complaints of nausea and vomiting or abdominal pain or diarrhea. Denied any loss of taste are. On admission T-max 99.8 and also 101 and respirations 22 pulse ox and was documented. Chest x-ray showed perihilar airspace consolidation compatible with pneumonia. EKG showed sinus tachycardia Laboratory data showed dullness he 15.4 hemoglobin 14.0 and platelets 397, d- dimer 8.93 Sodium 132 potassium 2.8) 97 BUN 12 and creatinine 0.65 magnesium 2.3 AST 83 and alk phos 101 ALT 120, LDH 966, CRP 19.3 COVID-19 PCR detected. 02/01/2021 Patient is currently lying in the bed awake alert and when 3. Patient is requiring oxygen at 6-8 L high flow. No complaints of chest pain or worsening shortness of breath. Feeling better today. Patient had CT angiogram was done due to elevated d-dimer level. CTA showed acute pulmonary arterial embolism. Multifocal pneumonia. There is a 6.5 cm soft tissue mass in the precarinal space with a basal traversing this mass. Patient was started on heparin drip immediately. Laboratory data showed WBC 14.2 hemoglobin 13.6 and platelets 442, d-dimer 8.93 Sodium 136 potassium 3.4 chloride 103 BUN 14 and creatinine 0.68 and calcium 7.9 LDH 931, CRP 16.0 and pro-calcitonin level is 0.15 Pulmonary is on board. 02/02/2021 Patient is currently lying in the bed. Awake alert and oriented. Saturating at 94% on 8 L high flow oxygen. CT angiogram showed pulmonary embolism and patient is currently on heparin drip which is being changed to Xarelto 50 mg twice daily. Patient was also found to have mediastinal mass. Outpatient follow-up with pulmonary for biopsy once COVID-19 symptoms resolved. Laboratory data showed WBC 15.8 hemoglobin 13.1 and platelets 490 Cultures showed no growth so far. Patient is being continued on antibiotics at home ceftriaxone. Continue with remdesivir, dexamethasone and anticoagulation. Pulmonary is on board. 02/03/2021 Patient is currently lying in the bed. Awake alert oriented. Requiring 4.5 liter oxygen via nasal cannula. CT angiogram found to have lung mass. And also pulmonary embolism. Plan for PET scan and possible biopsy. Otherwise patient is being continued on remdesivir, dexamethasone and multivitamins. On anticoagulation with Xarelto 15 mg twice daily for 3 weeks followed by 20 mg daily. For acute pulmonary embolism. Pulmonary is on board. Lab data showed WBC 14.5 hemoglobin 13.3 and platelets 533 Sodium 136 potassium 3.7 BUN 17 creatinine 0.7 Current medications reviewed. Objective - Vital Signs Vital signs: Vital Signs Temp 98.2 F 02/03/21 20:00 Pulse 93 02/03/21 20:00 Resp 18 02/03/21 20:00 BP 130/79 02/03/21 20:00 Pulse Ox 93 L 02/03/21 20:00 Intake & Output 02/03/21 02/03/21 02/04/21 06:59 18:59 06:59 Intake Total 485 997 485 Output Total 250 650 Balance 235 347 485 Weight 88.5 kg Intake: Oral 485 997 485 Output: Urine 250 650 Other: Voiding Method Urinal Urinal Urinal # Voids 1 # Bowel Movements 2 - Exam PHYSICAL EXAMINATION: Patient is lying in the bed comfortably, no acute distress, awake alert and oriented.. HEENT: Normocephalic. Neck is supple. Pupils reactive. Nostrils clear. Oral cavity is moist. Neck reveals no JVD, carotid bruits, or thyromegaly. CHEST EXAMINATION: Trachea is central. Symmetrical expansion. Scattered course breath sounds and crackles. No wheezing or rhonchi.. CARDIAC: Normal S1, S2 with no gallops. No murmurs ABDOMEN: Soft. Bowel sounds normal. No organomegaly. No abdominal bruits. Extremities: reveal no edema. No clubbing or cyanosis Neurologically awake, alert, oriented x3 with well-coordinated movements. No focal deficits noted Skin: No rash or skin lesions. Psychiatric: Coperative. Nonsuicidal Musculoskeletal: No joint swelling or deformity. Normal range of motion. - Labs CBC & Chem 7: 02/03/21 07:16 02/03/21 07:16 Labs: Abnormal Lab Results - Last 24 Hours (Table) 02/03/21 02/03/21 Range/Units 07:16 07:16 WBC 14.5 H (3.8-10.6) k/uL RBC 4.10 L (4.30-5.90) m/uL Plt Count 533 H (150-450) k/uL Neutrophils # 12.0 H (1.3-7.7) k/uL Sodium 136 L (137-145) mmol/L Glucose 139 H (74-99) mg/dL Microbiology - Last 24 Hours (Table) 01/31/21 10:53 Blood Culture - Preliminary Blood No Growth after 72 hours 01/31/21 11:21 Gram Stain - Final Sputum Sputum Culture - Preliminary 01/31/21 11:12 Blood Culture - Preliminary Blood No Growth after 72 hours Assessment and Plan Assessment: Acute pulmonary embolism 6.5 cm mediastinal mass Acute hypoxic respiratory failure secondary to COVID-19 pneumonia and acute PE. Patient has been having symptoms for days prior to admission. Possible superimposed bacterial pneumonia. Patient did COVID-19 vaccination History of prostate cancer History of trigeminal neuralgia Previous history of smoking DVT prophylaxis with Lovenox Plan: Patient will be continued on oxygen supplementation. Currently on 8 L oxygen via nasal cannula. Continue to titrate down oxygen. Patient was started on heparin drip. chnaged to Xarelto Continue on dexamethasone 6 mg daily. Pulmonary is following. was started on REM district course on 01/31/2021. Follow-up D-dimer, CRP, ferritin and LDH.. Pro-calcitonin level is slightly elevated. Legionella antigen is negative.. Patient is being continued on antibiotics in the form of ceftriaxone. Patient will need mediastinal biopsy. Prognosis is guarded. Time with Patient: Greater than 30
--- NOTE | 2021-02-04 07:05 | XR ---
EXAMINATION TYPE: XR chest 1V portable DATE OF EXAM: 02/04/2021 CLINICAL HISTORY: Difficulty breathing pneumonia and covid progress study. TECHNIQUE: Single AP portable upright view of the chest is obtained. COMPARISON: Chest x-ray from 3 and 4 earlier. CTA chest 3 days ago. FINDINGS: Persistent low lung volumes and bilateral mid lung consolidations with left side showing a dditional basilar component. Smaller multifocal areas of groundglass opacity and CT less well seen on plain films. Cardiac silhouette stable and within normal limits. Osseous structures are intact. IMPRESSION: Persistent low lung volumes and bilateral pneumonic consolidations consistent with covid- 19 infection, no significant change from most recent studies.
[2021-02-04] MEDS: CHOLECALCIFEROL 25 MCG (1000 IU) TABLET PO SCH (07:47)
[2021-02-04] MEDS: RIVAROXABAN 15 MG TAB PO SCH ×2 (07:47→19:50)
[2021-02-04] MEDS: ASCORBIC ACID 500 MG TAB PO SCH (07:47)
[2021-02-04] MEDS: DEXAMETHASONE SOD PHOSPHATE 10 MG/ML 1 ML VIAL IV SCH (07:48)
[2021-02-04] MEDS: ZINC SULFATE 220 MG CAP PO SCH (07:48)
[2021-02-04 10:18] LABS: African American GFR (CKD) >90 (>60 ml/min/1.73 sqM); Anion Gap 11 mmol/L; Blood Urea Nitrogen 16 mg/dL (9-20); Calcium 8.4 mg/dL (8.4-10.2); Carbon Dioxide 23 mmol/L (22-30); Chloride 102 mmol/L (98-107); Glucose 135 mg/dL (74-99); Non-African American GFR(CKD) >90 (>60 ml/min/1.73 sqM); Potassium 3.8 mmol/L (3.5-5.1); Sodium 136 mmol/L (137-145)
[2021-02-04 10:19] LABS: Basophils % (A) 0 %; Eosinophils # (A) 0.4 k/uL (0-0.7); Eosinophils % (A) 3 %; HCT 44.3 % (39.0-53.0); HGB 14.6 gm/dL (13.0-17.5); Lymphocytes # (A) 1.2 k/uL (1.0-4.8); Lymphocytes % (A) 9 %; MCH 32.6 pg (25.0-35.0); MCHC 32.9 g/dL (31.0-37.0); Mean Platelet Volume 8.5; Monocytes % (A) 7 %; Neutrophils # (A) 10.8 k/uL (1.3-7.7); Neutrophils % (A) 80 %; Platelet Count 531 k/uL (150-450); RBC 4.48 m/uL (4.30-5.90); RDW 13.7 % (11.5-15.5); WBC 13.6 k/uL (3.8-10.6)
[2021-02-04] MEDS: REMDESIVIR 100 MG in SODIUM CHLORIDE 0.9% 250 ML IVPB SCH (14:26)
--- NOTE | 2021-02-04 16:13 | P.PN ---
Subjective Progress Note Date: 02/04/21 Principal diagnosis: COVID-19 pneumonia On 02/04/2021 patient seen again in follow-up on selective care unit, his FiO2 is currently down to 4-1/2 L and his pulse ox is around 93-94%, his breathing comfortably, he continues on the Remdesivir, and today's his last day, he continues on oral Decadron, and Xarelto for newly found pulmonary embolism. Patient is ambulating in the room, tolerating activity well, he states he is feeling much better, he did however desaturate with ambulation on 4 to have liters down to 87%. Complaints of chest discomfort. No acute events overnight, no fever or chills. Today's labs have been reviewed. His blood and sputum cultures have remained negative. Legionella urine antigen is negative, his pro- calcitonin level is low at 0.15. Vital signs have been stable, overall he is feeling much better, he is tolerating oral intake, no nausea vomiting or diarrhea. Objective - Vital Signs Vital signs: Vital Signs Temp 97.3 F L 02/04/21 11:27 Pulse 89 02/04/21 11:28 Resp 20 02/04/21 11:27 BP 130/66 02/04/21 11:27 Pulse Ox 94 L 02/04/21 11:28 Intake & Output 02/03/21 02/04/21 02/04/21 18:59 06:59 18:59 Intake Total 1297 485 670 Output Total 650 200 375 Balance 647 285 295 Weight 88 kg Intake: Intake, IV Titration 300 250 Amount Remdesivir 100 mg In 250 250 Sodium Chloride 0.9% 250 ml @ 250 mls/hr IVPB Q24H [facility] Rx#:[id number] cefTRIAXone 2 gm In 50 Sodium Chloride 0.9% 50 ml @ 100 mls/hr IVPB Q24HR [facility] Rx#:[id number] Oral 997 485 420 Output: Urine 650 200 375 Other: Voiding Method Urinal Urinal Urinal # Voids 1 1 1 # Bowel Movements 1 - Exam GENERAL EXAM: Alert, very pleasant, 81-year-old male, unfortunately have liters with a pulse ox of 94% comfortable in no apparent distress. HEAD: Normocephalic/atraumatic. EYES: Normal reaction of pupils, equal size. Conjunctiva pink, sclera white. NOSE: Clear with pink turbinates. THROAT: No erythema or exudates. NECK: No masses, no JVD, no thyroid enlargement, no adenopathy. CHEST: No chest wall deformity. Symmetrical expansion. LUNGS: Equal air entry with no crackles, wheeze, rhonchi or dullness. CVS: Regular rate and rhythm, normal S1 and S2, no gallops, no murmurs, no rubs ABDOMEN: Soft, nontender. No hepatosplenomegaly, normal bowel sounds, no guarding or rigidity. EXTREMITIES: No clubbing, no edema, no cyanosis, 2+ pulses and upper and lower extremities. MUSCULOSKELETAL: Muscle strength and tone normal. SPINE: No scoliosis or deformity SKIN: No rashes CENTRAL NERVOUS SYSTEM: Alert and oriented -3. No focal deficits, tone is normal in all 4 extremities. PSYCHIATRIC: Alert and oriented -3. Appropriate affect. Intact judgment and insight. - Labs CBC & Chem 7: 02/04/21 08:16 02/04/21 08:16 Labs: Abnormal Lab Results - Last 24 Hours (Table) 02/04/21 02/04/21 Range/Units 08:16 08:16 WBC 13.6 H (3.8-10.6) k/uL Plt Count 531 H (150-450) k/uL Neutrophils # 10.8 H (1.3-7.7) k/uL Sodium 136 L (137-145) mmol/L Glucose 135 H (74-99) mg/dL Microbiology - Last 24 Hours (Table) 01/31/21 10:53 Blood Culture - Preliminary Blood No Growth after 96 hours 01/31/21 11:12 Blood Culture - Preliminary Blood No Growth after 96 hours 01/31/21 11:21 Gram Stain - Final Sputum Sputum Culture - Preliminary Assessment and Plan Plan: Assessment: #1. Acute hypoxic respiratory failure related to acute COVID-19 related pneumonia. Patient is fully vaccinated for COVID-19. Onset of symptoms as 5-6 days prior to presentation. Patient will be started on Remdesivir today on 01/31/2021 #2. Rule out possibility of bacterial pneumonia, pro-calcitonin level is pending. Legionella urine antigen was negative, pro-Level Was Negative at 0.15, bacterial pneumonia was felt to be less likely, nevertheless was initially treated with a combination of antibiotics which are currently discontinued. #3. Large mediastinal mass seen on the computed tomography scan measuring 6.5 x 3.7 x 1.8 cm #4. History of smoking #5. History of prostate cancer #6. History of trigeminal neuralgia #7. Acute pulmonary embolism, the patient has been started on Xarelto Plan: Patient is on last day of Remdesivir Continue Decadron Continue Xarelto FiO2 has been dropped down to 2 L Continue weaning FiO2 to keep O2 saturation is at or above 88-90% Patient is adamant about going home today or tomorrow He will likely need home oxygen He remains stable without increasing oxygen need or dyspnea, we will consider discharge home tomorrow I performed a history & physical examination of the patient and discussed their management with my nurse practitioner, Carol Almazan. I reviewed the nurse practitioner's note and agree with the documented findings and plan of care. Lung sounds are positive for clear breath sounds throughout the lung quiroz. The findings and the impression was discussed with the patient. I attest to the documentation by the nurse practitioner. Time with Patient: Less than 30
[2021-02-05] MEDS: DEXAMETHASONE SOD PHOSPHATE 10 MG/ML 1 ML VIAL IV SCH (07:40)
[2021-02-05] MEDS: ASCORBIC ACID 500 MG TAB PO SCH (07:40)
[2021-02-05] MEDS: ZINC SULFATE 220 MG CAP PO SCH (07:40)
[2021-02-05] MEDS: CHOLECALCIFEROL 25 MCG (1000 IU) TABLET PO SCH (07:40)
[2021-02-05] MEDS: RIVAROXABAN 15 MG TAB PO SCH (07:40)
--- NOTE | 2021-02-05 08:32 | XR ---
EXAMINATION TYPE: XR chest 1V portable DATE OF EXAM: 02/05/2021 COMPARISON: 02/04/2021 INDICATION: Atypical pneumonia TECHNIQUE: Single frontal view of the chest is obtained. FINDINGS: The heart size is normal. The pulmonary vasculature is normal. Focal consolidations or in the right upper lobe and left peripheral midlung E compatible with atypica l pneumonia. Additional milder filtrates are present peripherally. IMPRESSION: 1. Patchy bilateral lung infiltrates greatest in the right upper and left mid peripheral lungs compat ible with atypical pneumonia
--- NOTE | 2021-02-05 09:56 | P.PN ---
Subjective Progress Note Date: 02/05/21 Principal diagnosis: COVID-19 pneumonia On 02/04/2021 patient seen again in follow-up on selective care unit, his FiO2 is currently down to 4-1/2 L and his pulse ox is around 93-94%, his breathing comfortably, he continues on the Remdesivir, and today's his last day, he continues on oral Decadron, and Xarelto for newly found pulmonary embolism. Patient is ambulating in the room, tolerating activity well, he states he is feeling much better, he did however desaturate with ambulation on 4 to have liters down to 87%. Complaints of chest discomfort. No acute events overnight, no fever or chills. Today's labs have been reviewed. His blood and sputum cultures have remained negative. Legionella urine antigen is negative, his pro- calcitonin level is low at 0.15. Vital signs have been stable, overall he is feeling much better, he is tolerating oral intake, no nausea vomiting or diarrhea. On today's evaluation on 02/05/2021 patient is on 3 L of oxygen with pulse ox of 90-94%, afebrile overnight, vital signs have been stable, he is breathing comfortably, no chest discomfort, only occasional cough. Has been tolerating ambulation in the room. Completed a Remdesivir course yesterday, he remains on Decadron milligram daily, and started on oral anticoagulation in the form of Xarelto for newly found pulmonary embolism. Today's labs have been reviewed, with blood cell count continues to trend down, is down to 13.6 on today's labs, hemoglobin is 14.6, platelet count is 531, electrolytes and renal profile were unremarkable. cultures have been negative. Patient states he is feeling great, and he is adamant about getting home today. He does qualify for home oxygen, his room air pulse ox was less than 88% Objective - Vital Signs Vital signs: Vital Signs Temp 98.3 F 02/05/21 07:54 Pulse 95 02/05/21 07:54 Resp 18 02/05/21 07:54 BP 144/73 02/05/21 07:54 Pulse Ox 90 L 02/05/21 07:54 Intake & Output 02/04/21 02/05/21 02/05/21 18:59 06:59 18:59 Intake Total 907 240 Output Total 375 600 125 Balance 532 -600 115 Weight 100.5 kg Intake: Intake, IV Titration 250 Amount Remdesivir 100 mg In 250 Sodium Chloride 0.9% 250 ml @ 250 mls/hr IVPB Q24H [facility] Rx#:[id number] Oral 657 240 Output: Urine 375 600 125 Other: Voiding Method Urinal Urinal # Voids 1 # Bowel Movements 1 - Exam GENERAL EXAM: Alert, very pleasant, 81-year-old male, on 3 liters with a pulse ox of 94% comfortable in no apparent distress. HEAD: Normocephalic/atraumatic. EYES: Normal reaction of pupils, equal size. Conjunctiva pink, sclera white. NOSE: Clear with pink turbinates. THROAT: No erythema or exudates. NECK: No masses, no JVD, no thyroid enlargement, no adenopathy. CHEST: No chest wall deformity. Symmetrical expansion. LUNGS: Equal air entry with no crackles, wheeze, rhonchi or dullness. CVS: Regular rate and rhythm, normal S1 and S2, no gallops, no murmurs, no rubs ABDOMEN: Soft, nontender. No hepatosplenomegaly, normal bowel sounds, no guarding or rigidity. EXTREMITIES: No clubbing, no edema, no cyanosis, 2+ pulses and upper and lower extremities. MUSCULOSKELETAL: Muscle strength and tone normal. SPINE: No scoliosis or deformity SKIN: No rashes CENTRAL NERVOUS SYSTEM: Alert and oriented -3. No focal deficits, tone is normal in all 4 extremities. PSYCHIATRIC: Alert and oriented -3. Appropriate affect. Intact judgment and insight. - Labs CBC & Chem 7: 02/04/21 08:16 02/04/21 08:16 Labs: Abnormal Lab Results - Last 24 Hours (Table) 02/04/21 02/04/21 Range/Units 08:16 08:16 WBC 13.6 H (3.8-10.6) k/uL Plt Count 531 H (150-450) k/uL Neutrophils # 10.8 H (1.3-7.7) k/uL Sodium 136 L (137-145) mmol/L Glucose 135 H (74-99) mg/dL Microbiology - Last 24 Hours (Table) 01/31/21 10:53 Blood Culture - Preliminary Blood No Growth after 96 hours 01/31/21 11:12 Blood Culture - Preliminary Blood No Growth after 96 hours Assessment and Plan Plan: Assessment: #1. Acute hypoxic respiratory failure related to acute COVID-19 related pneumonia. Patient is fully vaccinated for COVID-19. Onset of symptoms as 5-6 days prior to presentation. Patient will be started on Remdesivir today on 01/31/2021 #2. Possibility of bacterial pneumonia ruled out based on pro-calcitonin level of 0.15. Legionella urine antigen was negative, pro-Level Was Negative at 0.15, bacterial pneumonia was felt to be less likely, nevertheless was initially treated with a combination of antibiotics which are currently discontinued. #3. Large mediastinal mass seen on the computed tomography scan measuring 6.5 x 3.7 x 1.8 cm #4. History of smoking #5. History of prostate cancer #6. History of trigeminal neuralgia #7. Acute pulmonary embolism, the patient has been started on Xarelto Plan: Overnight the patient has remained stable No Fever or Chills, Fio2 down to 3 L of oxygen, he does qualify for home oxygen at 2 l/min Breathing comfortably, tolerating ambulation in the room Patient is stable for discharge from pulmonary perspective Chest x-ray and labs have been noted No acute event overnight Patient can complete 6 more days of Decadron 6 mg daily He was started on oral anticoagulation no form of Xarelto while in the hospital for newly found pulmonary embolism We'll continue patient on Xarelto 15 mg twice daily for total of 21 days and then 20 mg daily Outpatient follow-up with Dr. Monroe in the office and 2-3 weeks I performed a history & physical examination of the patient and discussed their management with my nurse practitioner, Carol Almazan. I reviewed the nurse practitioner's note and agree with the documented findings and plan of care. Lung sounds are positive for clear breath sounds throughout the lung quiroz. The findings and the impression was discussed with the patient. I attest to the documentation by the nurse practitioner. Time with Patient: Less than 30
[2021-02-05 10:58] VITALS: PULSE 96
[2021-02-05 11:02] VITALS: BP 126/73; RESP 20; TEMP 97.1
== END 2021-02-05 13:46 | disposition home health service (06) | DRG 177 ==
LOC: EC 08:22 → 3SCARD 11:12
PROVIDERS: ADMIT Internal Medicine; ATTEND Internal Medicine
PROC: XW033E5 Introduction of Remdesivir Anti-infective into Peripheral Vein, Percutaneous Approach, New Technology Group 5 (ICD-10-PCS; principal; 2021-01-31)
PROC: 5A0955A Assistance with Respiratory Ventilation, Greater than 96 Consecutive Hours, High Flow/Velocity Cannula (ICD-10-PCS; 2021-01-31)
DX: U07.1 COVID-19 (principal); J12.82 Pneumonia due to coronavirus disease 2019; J96.01 Acute respiratory failure with hypoxia; I26.99 Other pulmonary embolism without acute cor pulmonale; J98.59 Other diseases of mediastinum, not elsewhere classified; J15.9 Unspecified bacterial pneumonia; Z79.899 Other long term (current) drug therapy; Z85.46 Personal history of malignant neoplasm of prostate; Z87.891 Personal history of nicotine dependence; Z86.69 Personal history of other diseases of the nervous system and sense organs
CPT/HCPCS: 36415; 71045; 71275; 80048; 80053; 83605; 83615; 83735; 83880; 84145; 84484; 85025; 85379; 85610; 85730; 86140; 87040; 87070; 87205; 87449; 87635; 93005; 94760; 99285

== ENCOUNTER → 2021-03-21 | Outpatient (CLI) | payer MEDICARE ==
--- NOTE | 2021-03-24 11:50 | PE ---
EXAMINATION TYPE: PET CT fusion skull to thigh DATE OF EXAM: 03/21/2021 COMPARISON: Chest CT February 01, 2021 HISTORY: History of prostate cancer with recent abnormal CT, right lower lobe nodule. TECHNIQUE: Following the intravenous administration of 9.16 mCi of F-18 FDG, whole body images are p erformed from the skull base to the midthigh. Images are reviewed on the computer in the coronal, ax ial, and sagittal planes. Reconstructed rotating images are created on independent workstation and r eviewed on the computer. A localization and attenuation correction CT is performed in conjunction w ith the PET scan. Blood glucose level equals 98 SCAN: Initial Scan FINDINGS: SKULL BASE AND NECK: Asymmetric uptake deep right masseter muscle could reflect intramuscular lesion but favors product of chewing, max SUV is 4.61 on axial image 31. CHEST, MEDIASTINUM, AND HILAR REGION: Low lung volume with areas of groundglass opacity and organizin g consolidation are redemonstrated bilaterally. Tiny bilateral pleural effusions inferiorly. No hyper metabolic intraparenchymal masses. Abnormal hypermetabolic thoracic lymph nodes are present however. For reference group of superior med iastinal lymph nodes axial image 63 to the right of the esophagus has max SUV 4.52. There is bilatera l hilar adenopathy, max SUV at level of right hilum is 5.14 on axial image 85. Prominent subcarinal a denopathy measuring 3.7 x 1.5 cm has max SUV 7.33 on axial image 85. ABDOMEN AND PELVIS: Single focus of abnormal hypermetabolic uptake right colon just before hepatic fl exure max SUV 6.13 on axial image 153 near site of mild fat stranding, perhaps resolving colitis. Cor relate clinically. No definitive CT correlate. No adrenal masses. No additional areas of abnormal hypermetabolic uptake. OSSEOUS STRUCTURES: No areas of abnormal hypermetabolic uptake. OTHER CT: Mild cardiomegaly. Enlarged main pulmonary artery at 3.3 cm axial image 79 suggesting under lying pulmonary artery hypertension. Mild three-vessel coronary artery calcification. Mild fat stranding in the left mid abdominal mesentery with prominent but subcentimeter lymph nodes. Moderate-sized bilateral fat containing inguinal hernias. IMPRESSION: Lung findings favor infectious or inflammatory etiology. Correlate clinically. Abnormal t horacic adenopathy. Consider neoplasm such as lymphoma especially given stan mesentery appearance in the upper to mid abdomen.
== END | disposition home or self-care (01) ==
LOC: RADPETMAIN 10:56
PROVIDERS: ATTEND Internal Medicine Critical Care Medicine
DX: R91.8 Other nonspecific abnormal finding of lung field (principal); Z85.07 Personal history of malignant neoplasm of pancreas; R59.0 Localized enlarged lymph nodes
CPT/HCPCS: 78815; A9552

== ENCOUNTER → 2021-11-19 | Outpatient (CLI) | payer MEDICARE | END | disposition home or self-care (01) | LOC: LABWHC1 11:41 | PROVIDERS: ATTEND Radiology Radiation Oncology | DX: C61 Malignant neoplasm of prostate (principal); Z08 Encounter for follow-up examination after completed treatment for malignant neoplasm; R35.1 Nocturia; Z85.46 Personal history of malignant neoplasm of prostate; Z87.891 Personal history of nicotine dependence | CPT/HCPCS: 36415; 84153 ==

== ENCOUNTER → 2022-11-20 | Outpatient (CLI) | payer MEDICARE | END | disposition home or self-care (01) | LOC: LABWHC1 11:54 | PROVIDERS: ATTEND Radiology Radiation Oncology | DX: Z08 Encounter for follow-up examination after completed treatment for malignant neoplasm (principal); C61 Malignant neoplasm of prostate; Z85.46 Personal history of malignant neoplasm of prostate; R35.1 Nocturia; Z87.891 Personal history of nicotine dependence | CPT/HCPCS: 36415; 84153 ==

== ENCOUNTER → 2023-11-22 | Outpatient (CLI) | payer MEDICARE | END | disposition home or self-care (01) | LOC: LABWHC1 13:09 | PROVIDERS: ATTEND Radiology Radiation Oncology | DX: Z08 Encounter for follow-up examination after completed treatment for malignant neoplasm (principal); R35.1 Nocturia; Z85.46 Personal history of malignant neoplasm of prostate; Z87.891 Personal history of nicotine dependence | CPT/HCPCS: 36415; 84153 ==

== ENCOUNTER → 2024-12-15 | Outpatient (CLI) | payer MEDICARE | END | disposition home or self-care (01) | LOC: LABWHC1 11:35 | PROVIDERS: ATTEND Radiology Radiation Oncology | DX: Z08 Encounter for follow-up examination after completed treatment for malignant neoplasm (principal); C61 Malignant neoplasm of prostate; R35.1 Nocturia; Z87.891 Personal history of nicotine dependence | CPT/HCPCS: 36415; 84153 ==